=== PATIENT | male | born 1980 | race African-American/Black ===

== ENCOUNTER 2025-05-16 11:16 | Outpatient (REF) | payer MEDICARE, MEDICAID, SELFPAY ==
--- NOTE | ~2025-05-16 | XR_ITS ---
EXAMINATION: XR SACRUM COCCYX 2 OR MORE VIEWS HISTORY: back pain COMPARISON: There are no prior studies available for comparison. FINDINGS: Three views of the sacrum and coccyx are submitted. Osseous mineralization is normal. No fracture or lytic lesion is identified. XR/XR sacrum coccyx min 2V IMPRESSION: Unremarkable examination of the sacrum and coccyx. Electronically signed by: Aayush Monae MD 05/16/2025 11:54 AM EDT
--- NOTE | ~2025-05-16 | XR_ITS ---
EXAMINATION: XR LUMBAR SPINE 2-3 VIEWS HISTORY: back pain COMPARISON: There are no prior studies for comparison. FINDINGS: AP, lateral, and coned down views of the lumbar spine are submitted. Osseous mineralization is normal. Five nonrib-bearing lumbar vertebral bodies are identified, maintaining normal height and alignment without evidence of fracture or spondylolisthesis. There is minimal anterior spurring involving the superior endplate of L4. The intervertebral disc spaces are preserved. The posterior elements are intact. The visualized paraspinal soft tissues are unremarkable. XR/XR lumbar spine 2-3V IMPRESSION: Minimal degenerative changes. Electronically signed by: Aayush Monae MD 05/16/2025 11:53 AM EDT
== END 2025-05-16 11:17 | disposition home or self-care (01) ==
LOC: HO.XRAY 11:16
PROVIDERS: PCP Internal Medicine Medical Oncology; Visit Provider Internal Medicine Medical Oncology
DX: M54.50 Low back pain, unspecified (principal)
CPT/HCPCS: 72100; 72220

== ENCOUNTER → 2025-05-16 11:41 | Outpatient (BNV) | payer MEDICARE, MEDICAID, SELFPAY | PROVIDERS: PCP Internal Medicine Medical Oncology; Visit Provider Radiology Diagnostic Radiology | DX: M54.50 Low back pain, unspecified (principal); M53.3 Sacrococcygeal disorders, not elsewhere classified | CPT/HCPCS: 72100; 72220 ==

== ENCOUNTER 2025-06-06 09:53 | Outpatient (REF) | payer MEDICARE, MEDICAID, SELFPAY ==
--- OUTSIDE RECORDS SUMMARY | 2025-04-09 06:45 | XMS_ITS ---
Author Organization Aayush Rice III, MD Address [address] [place] [address] Care Team Providers Care Underground Miner Name Role Phone Dr. Aayush Rice III Primary Care Provider [phone] Allergies Allergen (clinical drug ingredient) Drug/Non Drug Allergy documented on EMR Reaction Allergy Type Onset Date Status No Known Drug Allergy Unknown Drug Allergy Active No Known Food Allergy Unknown Drug Allergy Active Reason For Referral Reason Consult and Treat Screen for colon cancer Diagnosis 1 Screen for colon can cer (Z12.11) Referral Organization Aayush Rice III, MD Referring Provider First Name Aayush Referring Provider Last Name Dwayne Referring Provider Speciality Internal M edicine Referred Provider Aayush Zapien Referred Provider Specialty Gastroentero logy Referral Priority Routine REASON FOR VISIT Annual Exam Medications Medication SIG (Take, Route, Frequency, Duration) Notes Start Date End Date Status Entresto 49-51 MG 1 tablet Orally Twic e a day Active traMADol HCl 50 MG 1 tablet as needed Orally Once a day Active Albuterol Sulfate HFA 108 (90 Base) MCG/ACT 2 puffs as needed Inhalation four times a day 12/10/2013 Active traZODone HCl 100 MG 1 tablet at bedtime Orally Once a day Active Clotrimazole-Betamethasone 1-0.05 % 1 application Externally Twice a day for 30 days 04/09/2025 08/06/2025 Active Spironolactone 50 MG 1 tablet Orally Onc e a day Active Atorvastatin Calcium 80 MG 1 tablet Oral ly Once a day Active Social History Tobacco Use: Social History Observation Description Date Details (start date - stop date) Former Smoker NA - NA Sex Assigned At : Social History Observation Description Sex Assigned At Male Tobacco Control (Standard) Question Answer Notes Tobacco use: Former smoker How long has it been since you last smoked? 5-10 years Additional Findings: Tobacco non-user Ex-cigaret te smoker AUDIT-C (Standard) Question Answer Notes Did you have a drink contain ing alcohol in the past year? Yes How often did you have six o r more drinks on one occasion in the past year? 4 or more times a week (4 points) How many drinks did you have on a typical day when you were drinking in the past year? 1 or 2 drinks (0 point) How often did you have a dri nk containing alcohol in the past year? Never (0 point) Points 4 Interpretation Positive Vital Signs Temperature 98.0 degrees Fahrenheit 04/09/20 25 Blood pressure systolic 138 mm Hg 04/09/20 25 Blood pressure diastolic 82 mm Hg 025 Heart Rate 91 /min 04/09/2025 Height 71 in 04/09/2025 Weight 329 lbs 04/09/2025 BMI 45.88 kg/m2 04/09/2025 Encounters Encounter Location Date Provider Diagnosis Aayush Rice III, MD [address] [place] [address] [place] [id number] 04/09/2025 Aayush Rice Type 2 diabetes ninfa itus with hyperglycemia E11.65 ; ED (erectile dysfunction) N52.9 ; Essential hypertension I10 ; Mixed hyperlipidemia E78.2 ; Obstructive sleep apnea G47.33 and Former smoker Z87.891 Assessments Encounter Date Diagnosis (ICD Code) Assessment Notes Treat ment Notes Treatment Clinical Notes 04/09/2025 Type 2 diabetes mellitus with hyperglycemia (ICD-10 - E11.65) He will stay on his current regimen of medications for diabetes and try to lose weight at a rate of 1/2 pound per week. Comprehensive blood work will be ordered. His medication will be adjusted was not is available. 04/09/2025 ED (erectile dysfunction) (ICD-10 - N52.9) If necessary, he will be given medication for this. 04/09/2025 Essential hypertension (ICD-10 - I10) His blood pressure is currently stable. We made a plan to lose weight at a rate of 1 pound per week and 2 pursue aggressive sodium restriction. 04/09/2025 Mixed hyperlipidemia (ICD-10 - E78.2) Comprehensive blood work includding a fasting lipid profile has been ordered. He was counseled about aggressive weight loss. We discussed diet and nutrition. 04/09/2025 Obstructive sleep apnea (ICD-10 - G47.33) I discussed with him the wisdom and importance of using his CPAP machine. He seems unlikely to use it every night as he does not perceive a benefit in how he feels. I have referred him back to the pulmonary doctor who prescribed it to see if it needs adjustment. 04/09/2025 Former smoker (ICD-1 0 - Z87.891) He is motivated not to smoke. He has a plan to prevent relapse in times of stress. Plan Of Treatment Medication Medication Name Sig Start Date Stop Date Notes Entresto 49-51 MG 1 tablet Orally Twice a day traMADol HCl 50 MG 1 tablet as needed O rally Once a day Albuterol Sulfate HFA 108 (9 0 Base) MCG/ACT 2 puffs as needed Inhalation four times a day 12/10/2013 traZODone HCl 100 MG 1 tablet at bedtime Orally Once a day Clotrimazole-Betamethasone 1-0.05 % 1 application Externally Twice a day for 30 days 04/09/2025 08/06/2025 Spironolactone 50 MG 1 tablet Orally Once a day Atorvastatin Calcium 80 MG 1 tablet Orally Once a day Pending Test Test Name Order Date PROFILE, FASTING (COMPREHENSIVE METABOLI C) 04/09/2025 PSA, TOTAL 04/09/2025 CBC w DIFF 04/09/2025 Lipid Panel 04/09/2025 Microalbumin, Random 04/09/2025 Hemoglobin A1c 04/09/2025 Referrals Referral Date Details 04/09/2025 04/09/2025, Consult and Treat Screen for colon cancer, Aayush Zapien Next Appt Details Follow Up: 6 Weeks, Reason: OV Provider Name:Aayush Garyne , 07/18/2025 09:45:00 AM, [address] [place] [address] [address], [place], [address], Provider Name:Aayush Rhodes Rice , 04/10/2026 10:00:00 AM, [address] [place] [address] [address], [place], [phone], Progress Notes * Jose BORREGO DDOB:[birth year] (45 yo M)Acc No.[id number]:04/09/2025 Progress Notes Patient: Tami Jose WALDRON Provider: Tani Rice MD :1980 A ge:45 Y S ex:Male Date:04/09/2025 Address:[address] [place], [place] [id number] Subjective: * Chief Complaints: * A nnual Exam * HPI: D epression Screening: He has been living in [place] until 4 months ago when he returns to [place]. He is with 3 children. He says his diabetes has been well-controlled. He is still for a diabetic ophthalmology examination. This has been arranged with a referral. Jonn has never had a colonoscopy and was referred for 1. Comprehensive blood work was ordered. His examination today was remarkable only for diabetes. He says he has a CPAP machine which he is using. He denies any recent asthma attacks. Hiis back pain is present but mild. Since his last visit he has had no surgery or hospitalizations. PHQ-9 L ittle interest or pleasure in doing things?More than half the days F eeling down, depressed, or hopeless M ore than half the days T rouble falling or staying asleep, or sleeping too much M ore than half the days F eeling tired or having little energy M ore than half the days P oor appetite or overeating N ot at all F eeling bad about yourself or that you are a failure, or have let yourself or your family down S everal days T rouble concentrating on things, such as reading the newspaper or watching television N ot at all M oving or speaking so slowly that other people could have noticed; or the opposite, being so fidgety or restless that you have been moving around a lot more than usual N ot at all T houghts that you would be better off or of hurting yourself in some way N ot at all T otal Score 9 I nterpretation M ild Depression C OVID-19 Screening: Questions H ave you had any new onset fever, chills, cough, congestion, sore throat, shortness of breath, muscle aches? N o S CHRISTIANO Questions: SDOH Questions I n the past year have you been worried about losing your housing? N o I n the past year have you or any family members you live with been unable to get any of the following when it was really needed? Check all that apply: D ecline to answer * ROS: G eneral/Constitutional: pain o nly normal aches and pains. C hills d enies.?Fatigue a dmits. F ever d enies. E NT: Decreased hearing d enies. R espiratory: Cough d enies. C ardiovascular: Chest pain with exertion d enies. D yspnea on exertion?denies. S hortness of breath d enies. G astrointestinal: Constipation o ccasional. D ecreased appetite d enies. D iarrhea d enies. H eartburn o ccasional. N ausea d enies. R ectal bleeding d enies. V omiting d enies. H ematology: bruising d enies. p etechiae d enies. S wollen glands n one have been noted. G enitourinary: Frequent urination o nce a night. M usculoskeletal: Muscle aches d enies. P ainful joints d enies. S ciatica d enies. W eakness d enies. S kin: Itching d enies. R artem d enies. S kin lesion(s)?denies. N eurologic: Difficulty speaking d enies. D izziness d enies.?Headache d enies. L ow back pain d enies. P sychiatric: Depressed mood d enies. * Medical History: * Surgical History: L aparascopic sleeve gastrectomy, Upper endoscopy [id number] 07/2018cardiac catheterization, [facility], Dr. Atkins 10/16/2020 * Hospitalization/Major Diagno stic Procedure: D enies Past Hospitalization * Family History: M other: alive, overwieght with asthm;a. C hildren: one child has asthma. S iblings: a sister has asthma. F ather: diagnosed with HTN. 1 brother(s) , 2 sister(s) . 2 son(s) , 1 daughter(s) - healthy. . * Social History: T obacco Use: T obacco Control (Standard) T obacco use: F ormer smoker H ow long has it been since you last smoked??5-10 years A dditional Findings: Tobacco non-user E x-cigarette smoker D rugs/Alcohol: D rugs H ave you used drugs other than those for medical reasons in the past 12 months? [facility] es [facility] Y es D rug/Alcohol: A GERMAINE-C (Standard) D id you have a drink containing alcohol in the past year? Y es H ow often did you have six or more drinks on one occasion in the past year? 4 or more times a week (4 points) H ow many drinks did you have on a typical day when you were drinking in the past year? 1 or 2 drinks (0 point) H ow often did you have a drink containing alcohol in the past year? N ever (0 point) P oints 4 I nterpretation P ositive H celso is unemployed at present. He is single. His ex- is Molly. He has 3 children. He was born in [place], [place]. * Medications: T akingSpironolactone 50 MG Tablet 1 tablet Orally Once a day Atorvastatin Calcium 80 MG Tablet 1 tablet Orally Once a day Entresto 49-51 MG Tablet 1 tablet Orally Twice a day traMADol HCl 50 MG Tablet 1 tablet as needed Orally Once a day Albuterol Sulfate HFA 108 (90 Base) MCG/ACT Aerosol Solution 2 puffs as needed Inhalation four times a day traZODone HCl 100 MG Tablet 1 tablet at bedtime Orally Once a day Taking Spironolactone 50 MG Tablet 1 tablet Orally Once a day Taking Atorvastatin Calcium 80 MG Tablet 1 tablet Orally Once a day Taking Entresto 49-51 MG Tablet 1 tablet Orally Twice a day Taking traMADol HCl 50 MG Tablet 1 tablet as needed Orally Once a day Taking Albuterol Sulfate HFA 108 (90 Base) MCG/ACT Aerosol Solution 2 puffs as needed Inhalation four times a day Taking traZODone HCl 100 MG Tablet 1 tablet at bedtime Orally Once a day DiscontinuedProAir HFA 108 (90 Base) MCG/ACT Aerosol Solution 2 puff as needed Inhalation 4 times a day Lisinopril 20 MG Tablet TAKE 1 TABLET BY MOUTH TWICE DAILY Oral Simvastatin 40 MG Tablet TAKE 1 TABLET BY MOUTH EVERY NIGHT AT BEDTIME Oral Cyclobenzaprine HCl 10 MG Tablet TAKE 1 TABLET BY MOUTH THREE TIMES DAILY NEEDED AT BEDTIME FOR 10 DAYS Oral Loratadine 10 MG Tablet 1 tablet Oral Once a day Lotrisone 1-0.05 % Cream 1 application to affected area Externally Twice a day BD Insulin Syringe U-100 1 ML Miscellaneous as directed as directed 10 unit daily and as needed per sliding scale OneTouch Delica Lancets Fine 0 Miscellaneous TEST THREE TIMES DAILY as directed test blood sugars TID FreeStyle Lite Test - Strip as directed In Vitro 3 times a day NovoLOG 100 UNIT/ML Solution as directed Subcutaneous 10 units under skin prior to each meal Alcohol Pads 70 % Pad as directed use to test 3 times a day daily Lantus 100 UNIT/ML Solution as directed Subcutaneous 10 unit daily Ketoconazole 2 % Cream 1 application Externally Twice a day Furosemide 40 MG Tablet 1 tablet Orally Once a day Carvedilol 12.5 MG Tablet 1 tablet with food Orally Twice a day predniSONE 20 MG Tablet 1 tablet with food or milk Orally Once a day Medication List reviewed and reconciled with the patientDiscontinued ProAir HFA 108 (90 Base) MCG/ACT Aerosol Solution 2 puff as needed Inhalation 4 times a day Discontinued Lisinopril 20 MG Tablet TAKE 1 TABLET BY MOUTH TWICE DAILY Oral Discontinued Simvastatin 40 MG Tablet TAKE 1 TABLET BY MOUTH EVERY NIGHT AT BEDTIME Oral Discontinued Cyclobenzaprine HCl 10 MG Tablet TAKE 1 TABLET BY MOUTH THREE TIMES DAILY NEEDED AT BEDTIME FOR 10 DAYS Oral Discontinued Loratadine 10 MG Tablet 1 tablet Oral Once a day Discontinued Lotrisone 1-0.05 % Cream 1 application to affected area Externally Twice a day Discontinued BD Insulin Syringe U-100 1 ML Miscellaneous as directed as directed 10 unit daily and as needed per sliding scale Discontinued OneTouch Delica Lancets Fine 0 Miscellaneous TEST THREE TIMES DAILY as directed test blood sugars TID Discontinued FreeStyle Lite Test - Strip as directed In Vitro 3 times a day Discontinued NovoLOG 100 UNIT/ML Solution as directed Subcutaneous 10 units under skin prior to each meal Discontinued Alcohol Pads 70 % Pad as directed use to test 3 times a day daily Discontinued Lantus 100 UNIT/ML Solution as directed Subcutaneous 10 unit daily Discontinued Ketoconazole 2 % Cream 1 application Externally Twice a day Discontinued Furosemide 40 MG Tablet 1 tablet Orally Once a day Discontinued Carvedilol 12.5 MG Tablet 1 tablet with food Orally Twice a day Discontinued predniSONE 20 MG Tablet 1 tablet with food or milk Orally Once a day Medication List reviewed and reconciled with the patient * Allergies: N o Known Drug AllergyNo Known Food Allergyno[Allergies Verified] Objective: * Vitals: H t: 71, Wt: 329, BMI:45.88, BP: 138/82, HR: 91, Temp: 98.0, Wt-k.23. * Examination: G eneral Examination: GENERAL APPEARANCE: p leasant, well nourished, well developed, in no acute distress, calm and relaxed: morbidly obese: man. HEAD: a traumatic, normocephalic. EYES: e hossein, perrla, anicteric, conjugate. EARS: n ormal. NOSE: s eptum intact. ORAL CAVITY: n ormal, unremarkable. NECK/THYROID: n o jugular venous distention, no carotid bruit, thyroid normal. LYMPH NODES: n o enlarged lymph nodes,spleen normal. SKIN: n o suspicious lesions, anicteric. HEART: n o clicks, gallops, murmurs, or rubs, regular rhythm, S1, S2 normal, no s3, or vascular bruits. LUNGS: c lear to auscultation . BREASTS: no masses palpable bilaterally. ABDOMEN: b owel sounds normal, no ascites, no organomegaly, no mass: morbid obesity. RECTAL EXAM: n ot examined. MUSCULOSKELETAL: e xtremities unremarkable, no clubbing, cyanosis or edema. PERIPHERAL PULSES: n ormal. NEUROLOGIC: a lert and oriented, cranial nerves 2-12 grossly intact, deep tendon reflexes 2+ symmetrical, motor strength normal upper and lower extremities, sensory exam intact. PSYCH: a lert, oriented. Assessment: * Assessment: 1. T ype 2 diabetes mellitus with hyperglycemia - E11.65 (Primary) N otes :He will stay on his current regimen of medications for diabetes and try to lose weight at a rate of 1/2 pound per week. Comprehensive blood work will be ordered. His medication will be adjusted was not is available. 2 . E D (erectile dysfunction) - N52.9 N otes :If necessary, he will be given medication for this. 3 . E ssential hypertension - I10 N otes :His blood pressure is currently stable. We made a plan to lose weight at a rate of 1 pound per week and 2 pursue aggressive sodium restriction. 4 . M ixed hyperlipidemia - E78.2 N otes :Comprehensive blood work includding a fasting lipid profile has been ordered. He was counseled about aggressive weight loss. We discussed diet and nutrition. 5 . O bstructive sleep apnea - G47.33 N otes :I discussed with him the wisdom and importance of using his CPAP machine. He seems unlikely to use it every night as he does not perceive a benefit in how he feels. I have referred him back to the pulmonary doctor who prescribed it to see if it needs adjustment. 6 . F ormer smoker - Z87.891 N otes :He is motivated not to smoke. He has a plan to prevent relapse in times of stress. Plan: * Treatment: 2. E D (erectile dysfunction) L AB: PROFILE, FASTING (COMPREHENSIVE METABOLIC) L AB: PSA, TOTAL L AB: CBC w DIFF L AB: Lipid Panel L AB: Microalbumin, Random L AB: Hemoglobin A1c 3. E ssential hypertension L AB: PROFILE, FASTING (COMPREHENSIVE METABOLIC) L AB: PSA, TOTAL L AB: CBC w DIFF L AB: Lipid Panel L AB: Microalbumin, Random L AB: Hemoglobin A1c 4. M ixed hyperlipidemia L AB: PROFILE, FASTING (COMPREHENSIVE METABOLIC) L AB: PSA, TOTAL L AB: CBC w DIFF L AB: Lipid Panel L AB: Microalbumin, Random L AB: Hemoglobin A1c 5. O thers Referral To:Aayush Zapien Gastroenterology Reason:Consult and Treat Screen for colon cancer * Procedure Codes: * Preventive Medicine: Counseling: C are goal follow-up plan: Counseling for abnormal BMI given Y es Above Normal BMI Follow-up D ietary management education, guidance, and counseling, Dietary needs education, Exercise promotion: strength training, Exercise promotion: stretching, Feeding regime, Giving encouragement to exercise, Lifestyle education regarding diet, Nutrition / feeding management, Nutrition therapy, Prescribed activity/exercise education, Prescribed diet education, Prescribed dietary intake, Special diet education, Weight monitoring , Intervention, Order not done: Medical or Other reason not done S moking/Tobacco Use Patient counseled on the dangers of tobacco use and urged to quit. 0 04/09/2025 DM Care Plan: P atient Lifestyle Goals P atient wants to be able to manage diabetes without too much effort. T reatment Goals H bA1C < 7.0, Blood Sugars less than < 115. B arriers n o barriers. S elf-Managment Goals W ork on weight loss, with a goal of losing 1 lb per week. * Follow Up: 6 Weeks (Reason: OV) * Images: * Sign off status: Completed true * Provider: Tani Rice MD Date: 0 04/09/2025 Generated for Janis hood/Lindy/Rgahuitting on: 11:42 AM EDT History and Physical Notes * HPI (History of Present Illness) Category Sub-Category Detail Notes Depression Screening PHQ-9 Little inte rest or pleasure in doing things: More than half the days Feeling down, depressed, or hopeless: Mo re than half the days Trouble falling or staying a sleep, or sleeping too much: More than half the days Feeling tired or having little energy: M ore than half the days Poor appetite or overeating: Not at all Feeling bad about yourself o r that you are a failure, or have let yourself or your family down: Several days Trouble concentrating on thi ngs, such as reading the newspaper or watching television: Not at all Moving or speaking so slowly that other people could have noticed; or the opposite, being so fidgety or restless that you have been moving around a lot more than usual: Not at all Thoughts that you would be b cat off or of hurting yourself in some way: Not at all Total Score: 9 Interpretation: Mild Depression COVID-19 Screening Questions Have you had any new onset fever, chills, cough, congestion, sore throat, shortness of breath, muscle aches?: No SDOH Questions SDOH Questions In the past year have you been worried about losing your housing?: No In the past year have you or any family members you live with been unable to get any of the following when it was really needed? Check all that apply:: Decline to answer Examination Category Sub-Category Detail Notes General Examination GENERAL APPEARANCE: pleasant , well nourished, well developed, in no acute distress, calm and relaxed: morbidly obese: man HEAD: atraumatic, normocep halic EYES: eomi, perrla, anicte daniela, conjugate EARS: normal NOSE: septum intact NECK/THYROID: no jugular venous di stention, no carotid bruit, thyroid normal HEART: no clicks, gallops, murmurs, or rubs, regular rhythm, S1, S2 normal, no s3, or vascular bruits LUNGS: clear to auscultatio n ABDOMEN: bowel sounds normal, no ascites, no organomegaly, no mass: morbid obesity NEUROLOGIC: alert and oriented, cranial nerves 2-12 grossly intact, deep tendon reflexes 2+ symmetrical, motor strength normal upper and lower extremities, sensory exam intact SKIN: no suspicious lesion s, anicteric PERIPHERAL PULSES: normal BREASTS: no masses palpable b ilaterally MUSCULOSKELETAL: extremities unremark able, no clubbing, cyanosis or edema LYMPH NODES: no enlarged lymph no corina,spleen normal RECTAL EXAM: not examined PSYCH: alert, oriented ORAL CAVITY: normal, unremarkable Consultation Request Notes Referral Date Referring Provider Referred Provider Not se 04/09/2025 Aayush Rice, Aayush Deleon and Kasey benavidez Screen for colon cancer
--- OUTSIDE RECORDS SUMMARY | 2025-04-10 05:07 | XMS_ITS ---
Author Organization Aayush Rice III, MD Address [address] [place] [address] Care Team Providers Care Shearing Shed Hand Name Role Phone Dr. Aayush Rice III Primary Care Provider REASON FOR VISIT Rx Medications Medication SIG (Take, Route, Frequency, Duration) Notes Start Date End Date Status Clotrimazole-Betamethason e 1-0.05 % 1 application Externally Twice a day for 30 days 04/09/2025 08/08/2025 Active Social History Sex Assigned At : Social History Observation Description Sex Assigned At Male Encounters Encounter Location Date Provider Diagnosis Aayush Rice III, MD [address] [place] [address] [place] [phone] 04/10/2025 Aayush Rice Type 2 diabetes mellitus with hyperglycemia E11.65 Assessments Encounter Date Diagnosis (ICD Code) Assessment Notes Treat ment Notes Treatment Clinical Notes 04/10/2025 Type 2 diabetes mellitus with hyperglycemia (ICD-10 - E11.65) He will stay on his current regimen of medications for diabetes and try to lose weight at a rate of 1/2 pound per week. Periodic blood work will be done. Plan Of Treatment Medication Medication Name Sig Start Date Stop Date Notes Clotrimazole-Betamethasone 1-0.05 % 1 application Externally Twice a day for 30 days 04/09/2025 08/08/2025 Next Appt Details Provider Name:Aayush Meagan Dwayne , 07/18/2025 09:45:00 AM, [address] [place] [address] [address], [place], [phone], Provider Name:Aayush Rhodes Dwayne , 04/10/2026 10:00:00 AM, [address] [place] [address] [address], [place], [phone], Progress Notes * Jose ALVAREZ DDOB:[birth year] (45 yo M)Acc No.[id number]:04/10/2025 Patient: Tami Jose WALDRON :1980 A ge:45 Y S ex:Male Address:[address] [place] [id number] * Refills Refill Clotrimazole-Betamethasone Cream, 1-0.05 %, Externally, 60 Gram, 1 application, Twice a day, 30 days, Refills=3 * true * Date: Generated for Janis hood/Lindy/Raghuitting on: 11:41 AM EDT
--- OUTSIDE RECORDS SUMMARY | 2025-04-22 05:45 | XMS_ITS ---
Author Organization Aayush Rice III, MD Address [address] [place] [address] Care Team Providers Care Booster Station Operator Name Role Phone Dr. Aayush Rice III Primary Care Provider Allergies Allergen (clinical drug ingredient) Drug/Non Drug Allergy documented on EMR Reaction Allergy Type Onset Date Status No Known Drug Allergy Unknown Drug Allergy Active No Known Food Allergy Unknown Drug Allergy Active REASON FOR VISIT Acute right knee pain, Right knee effusion, History of gout, Sleep apnea, Diabetes, Asthma, Lumbar radiculopathy, Morbid obesity Medications Medication SIG (Take, Route, Frequency, Duration) Notes Start Date End Date Status Atorvastatin Calcium 80 MG 1 tablet Oral ly Once a day Active traZODone HCl 100 MG 1 tablet at bedtime Orally Once a day Active Albuterol Sulfate HFA 108 (90 Base) MCG/ACT 2 puffs as needed Inhalation four times a day 12/10/2013 Active traMADol HCl 50 MG 1 tablet as needed Orally Once a day Active Entresto 49-51 MG 1 tablet Orally Twic e a day Active Spironolactone 50 MG 1 tablet Orally Onc e a day Active Clotrimazole-Betamethasone 1-0.05 % 1 application Externally Twice a day 04/09/2025 Active predniSONE 20 MG 2 tablets with food or milk Orally Once a day for 3 days 04/22/2025 04/28/2025 Active Social History Tobacco Use: Social History Observation Description Date Details (start date - stop date) Former Smoker NA - NA Sex Assigned At : Social History Observation Description Sex Assigned At Male Tobacco Control (Standard) Question Answer Notes Tobacco use: Former smoker How long has it been since you last smoked? 5-10 years Additional Findings: Tobacco non-user Ex-cigaret te smoker Problems Problem Type SNOMED Code ICD Code Onset Dates Problem Status W/U Status Risk Notes Problem Obesity (464554955) Obesity (278.00) Active confirmed He has gained 2 pounds since his last visit which is likely fluid. I strongly encouraged him to continue with weight loss program. 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 Periodic blood work will be done. 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 It was treated with prednisone. 04/22/2025 Former smoker (ICD-10 - Z87.891) He is motivated not to smoke. He has a plan to prevent relapse in times of stress. 04/22/2025 Obstructive sleep apnea (ICD-10 - G47.33) I discussed with him the wisdom and importance of using his CPAP machine. He seems unlikely to use it every night as he does not perceive a benefit in how he feels. I have referred him back to the pulmonary doctor who prescribed it to see if it needs adjustment. 04/22/2025 Essential hypertension (ICD-10 - I10) His blood pressure is currently stable. We made a plan to lose weight at a rate of 1 pound per week and to pursue aggressive sodium restriction. 04/22/2025 GERD (gastroesophageal reflux disease) (ICD-10 - K21.9) His reflux has been well controlled with [id number]-bljkmvu medications. No change in his regimen was needed today. I recommended weight reduction. 04/22/2025 Other congestive heart failure (ICD-10 - I50.9) CHF is well compensated at this time and he is not symptomatic with most of activities of daily life. 04/22/2025 Hypothyroidism, unspecified type (ICD-10 - E03.9) His total T4 was 3.7 with a TSH of 2.55. No change in his regimen was needed. Plan Of Treatment Medication Medication Name Sig Start Date Stop Date Notes Atorvastatin Calcium 80 MG 1 tablet Orally Once a day traZODone HCl 100 MG 1 tablet at bedtime Orally Once a day Albuterol Sulfate HFA 108 (9 0 Base) MCG/ACT 2 puffs as needed Inhalation four times a day 12/10/2013 traMADol HCl 50 MG 1 tablet as needed O rally Once a day Entresto 49-51 MG 1 tablet Orally Twice a day Spironolactone 50 MG 1 tablet Orally Once a day Clotrimazole-Betamethasone 1-0.05 % 1 application Externally Twice a day 04/09/2025 predniSONE 20 MG 2 tablets with food or milk Orally Once a day for 3 days 04/22/2025 04/28/2025 Next Appt Details Follow Up: 2 - 3 Days, Reaso n: Telehealth Provider Name:Aayush Houston Dwayne , 07/18/2025 09:45:00 AM, [address] [place] [address] [address], [place], [address], Provider Name:Aayush Meagan Dwayne , 04/10/2026 10:00:00 AM, [address] [place] [address] [address], [place], [address], Progress Notes * Jose BORREGO DDOB:[birth year] (45 yo M)Acc No.[id number]:04/22/2025 Progress Notes Patient: Tami JOYAMARITA Jose Benavides Provider: Tani Rice MD :1980 A ge:45 Y S ex:Male Date:04/22/2025 Address:[address] [place], [place] [id number] Subjective: * Chief Complaints: * A cute right knee painRight knee effusionHistory of goutSleep apneaDiabetesAsthmaLumbar radiculopathyMorbid obesity * HPI: C OVID-19 Screening: He comes to the office because of a three-day history of acute right knee pain. He may have twisted it but he is not sure. It has become moderately painful with weightbearing. He has taken no medication. On examination there was a small joint effusion and limitation of range of motion. It is likely this represents gout. He was given prednisone for 3 days in a follow-up visit. Questions H ave you had any new onset fever, chills, cough, congestion, sore throat, shortness of breath, muscle aches? N o * ROS: G eneral/Constitutional: pain R ight knee for 3 days. C hills d enies. F atigue a dmits. F ever d enies. E NT: Decreased hearing d enies. R espiratory: Cough d enies. C ardiovascular: Chest pain with exertion d enies. D yspnea on exertion?denies. S hortness of breath d enies. G astrointestinal: Constipation o ccasional. D ecreased appetite d enies. D iarrhea d enies. H eartburn d enies. N ausea d enies. R ectal bleeding [...] History: L aparascopic sleeve gastrectomy, Upper endoscopy [id number] 07/2018cardiac catheterization, [facility], Dr. Atkins 10/16/2020 * Hospitalization/Major Diagno stic [...] dditional Findings: Tobacco non-user E x-cigarette smoker Karol houston is unemployed at present. He is single. His ex- is Molly. He has 3 children. He was born in [place], [place]. * Medications: T akingSpironolactone 50 MG [...] Orally Once a day Clotrimazole-Betamethasone 1-0.05 % Cream 1 application Externally Twice a day , stop date 08/08/2025Medication List reviewed and reconciled with the patientTaking Spironolactone 50 MG Tablet 1 tablet Orally [...] at bedtime Orally Once a day Taking Clotrimazole-Betamethasone 1-0.05 % Cream 1 application Externally Twice a day , stop date 08/08/2025Medication List reviewed and reconciled with the patient * Allergies: N o Known Drug AllergyNo Known Food Allergyno[Allergies Verified] Objective: * Vitals: H t: 71, Wt: 330, BMI:46.02, BP: 130/79, HR: 80, Temp: 98.1, Wt-k.69. * Examination: G eneral Examination: GENERAL APPEARANCE: [...] or vascular bruits. LUNGS: c lear to auscultation: no wheezes, rales, rhonchi: good air movement. BREASTS: no masses palpable bilaterally. ABDOMEN: b owel sounds normal, no ascites, no organomegaly, no mass: morbid obesity. RECTAL EXAM: n ot examined. MUSCULOSKELETAL: M oderate right knee effusion with decreased range of motion and pain. PERIPHERAL PULSES: n ormal. NEUROLOGIC: a lert and oriented, cranial nerves 2-12 grossly intact, deep tendon reflexes 2+ symmetrical, motor strength normal upper and lower extremities, sensory exam intact. PSYCH: a lert, oriented. Assessment: * Assessment: 1. O ther secondary chronic gout without tophus, unspecified site - M1A.40X0 (Primary) ? N otes :This is likely gout in the right knee. It was treated with prednisone. 2 . T ype 2 diabetes mellitus with hyperglycemia - E11.65 N otes :He will stay on his current regimen of medications for diabetes and try to lose weight at a rate of 1/2 pound per week. Periodic blood work will be done. 3 . F ormer smoker - Z87.891 N otes :He is motivated not to smoke. He has a plan to prevent relapse in times of stress. 4 . O bstructive sleep apnea - G47.33 N otes :I discussed with him the wisdom and importance of using his CPAP machine. He seems unlikely to use it every night as he does not perceive a benefit in how he feels. I have referred him back to the pulmonary doctor who prescribed it to see if it needs adjustment. 5 . E ssential hypertension - I10 N otes :His blood pressure is currently stable. We made a plan to lose weight at a rate of 1 pound per week and to pursue aggressive sodium restriction. 6 . G ERD (gastroesophageal reflux disease) - K21.9 N otes :His reflux has been well controlled with xusq-lzd-eodomtc medications. No change in his regimen was needed today. I recommended weight reduction. 7 . O ther congestive heart failure - I50.9 N otes :CHF is well compensated at this time and he is not symptomatic with most of activities of daily life. 8 . H ypothyroidism, unspecified type - E03.9 N otes :His total T4 was 3.7 with a TSH of 2.55. No change in his regimen was needed. Plan: * Treatment: * Procedure Codes: * Preventive Medicine: Counseling: [...] tobacco use and urged to quit. 0 04/22/2025 DM Care Plan: P atient Lifestyle Goals P atient wants to be able to manage diabetes without too much effort. T reatment Goals H bA1C < 7.0, Blood Sugars less than < 115. B arriers n o barriers. S elf-Managment Goals W ork on weight loss, with a goal of losing 1 lb per week. * Follow Up: 2 - 3 Days (Reason: Telehealth) * Images: * Sign off status: Completed true * Provider: Tani Rice MD Date: 0 04/22/2025 Generated for Janis hood/Lindy/eTnavitting on: 1 11:41 AM EDT History and Physical Notes * HPI (History of Present Illness) Category Sub-Category Detail Notes COVID-19 Screening Questions Have you had any new onset fever, chills, cough, congestion, sore throat, shortness of breath, muscle aches?: No Examination Category Sub-Category Detail Notes General Examination [...] or vascular bruits LUNGS: clear to auscultatio n: no wheezes, rales, rhonchi: good air movement ABDOMEN: bowel sounds normal, no ascites, no organomegaly, no mass: morbid obesity NEUROLOGIC: alert and oriented, cranial nerves 2-12 grossly intact, deep tendon reflexes 2+ symmetrical, motor strength normal upper and lower extremities, sensory exam intact SKIN: no suspicious lesion s, anicteric PERIPHERAL PULSES: normal BREASTS: no masses palpable b ilaterally MUSCULOSKELETAL: Moderate right knee effusion with decreased range of motion and pain LYMPH NODES: no enlarged lymph no corina,spleen normal RECTAL EXAM: not examined PSYCH: alert, oriented ORAL CAVITY: normal, unremarkable
--- OUTSIDE RECORDS SUMMARY | 2025-04-26 10:30 | XMS_ITS ---
Author Organization Aayush Rice III, MD Address [address] [place] [address] Care Team Providers Care Skiff Operator Name Role Phone Dr. Aayush Rice III Primary Care Provider [phone] Allergies Allergen (clinical drug ingredient) Drug/Non Drug Allergy documented on EMR Reaction Allergy Type Onset Date Status No Known Drug Allergy Unknown Drug Allergy Active No Known Food Allergy Unknown Drug Allergy Active REASON FOR VISIT Acute right knee pain, History of gout Medications Medication SIG (Take, Route, Frequency, Duration) Notes Start Date End Date Status predniSONE 20 MG 2 tablets with food or milk Orally Once a day 04/22/2025 Active Entresto 49-51 MG 1 tablet Orally Twic e a day Active Atorvastatin Calcium 80 MG 1 tablet Oral ly Once a day Active Spironolactone 50 MG 1 tablet Orally Onc e a day Active Clotrimazole-Betamethasone 1-0.05 % 1 application Externally Twice a day 04/09/2025 Active traZODone HCl 100 MG 1 tablet at bedtime Orally Once a day Active Albuterol Sulfate HFA 108 (90 Base) MCG/ACT 2 puffs as needed Inhalation four times a day 12/10/2013 Active traMADol HCl 50 MG 1 tablet as needed Orally Once a day Active Social History Tobacco [...] Problem Status W/U Status Risk Notes Problem [id number] Right anterior knee pain (M25.561) Active confirmed He has an appointment arranged with orthopedic surgery. He was continued on current therapy. He was advised to use a heating pad on his knee and to rest it as much as possible. 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 He will continue with heat and rest and acetaminophen. 04/26/2025 Type 2 diabetes mellitus with hyperglycemia (ICD-10 - E11.65) He will stay on his current regimen of medications for diabetes and try to lose weight at a rate of 1/2 pound per week. Periodic blood work will be done. 04/26/2025 Former smoker (ICD-1 0 - Z87.891) He is motivated not to smoke. He has a plan to prevent relapse in times of stress. 04/26/2025 Other congestive heart failure (ICD-10 - I50.9) CHF is well compensated at this time and he is not symptomatic with most of activities of daily life. 04/26/2025 Hypothyroidism, unspecified type (ICD-10 - E03.9) His total T4 was 3.7 with a TSH of 2.55. No change in his regimen was needed. 04/26/2025 Mixed hyperlipidemia (ICD-10 - E78.2) Comprehensive blood work includding a fasting lipid profile has been ordered. He was counseled about aggressive weight loss. We discussed diet and nutrition. 04/26/2025 Morbid obesity (ICD-10 - E66.01) We reviewed his diet and his nutrition and his weight and his body mass index. I reviewed his weight loss strategy. I recommended weight loss at a rate of 1/2 pound per week through a diet restricted in concentrated sweets calories and animal fat and sodium. 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 It was treated with prednisone. 04/26/2025 Lumbar radiculopathy (ICD-10 - M54.16) His wheezing today is absent and his asthma recently has been mild. He is much less short of breath and when he went to the [facility] on October 13. 04/26/2025 Mild asthma without complication, unspecified whether persistent (ICD-10 - J45.909) There was no wheezing noted today and he was breathing comfortably. He reports he has not recently had any asthma. Plan Of Treatment Medication Medication Name Sig Start Date Stop Date Notes predniSONE 20 MG 2 tablets with food or milk Orally Once a day 04/22/2025 Entresto 49-51 MG 1 tablet Orally Twice a day Atorvastatin Calcium 80 MG 1 tablet Orally Once a day Spironolactone 50 MG 1 tablet Orally Once a day Clotrimazole-Betamethasone 1-0.05 % 1 application Externally Twice a day 04/09/2025 traZODone HCl 100 MG 1 tablet at bedtime Orally Once a day Albuterol Sulfate HFA 108 (9 0 Base) MCG/ACT 2 puffs as needed Inhalation four times a day 12/10/2013 traMADol HCl 50 MG 1 tablet as needed O rally Once a day Next Appt Details Follow Up: As Scheduled, Dinorah son: OV Provider Name:Aayush Meagan Dwayne , 07/18/2025 09:45:00 AM, [address] [place] [address] [address], [place], [address], Provider Name:Aayush Meagan wDayne , 04/10/2026 10:00:00 AM, [address] [place] [address] [address], [place], [address], Progress Notes * Jose ALVAREZ DDOB:[birth year] (45 yo M)Acc No.[id number]:04/26/2025 Patient: Jose WHALEN Provider: Tani Rice MD :1980 A ge:45 Y S ex:Male Date:04/26/2025 Address:[address] [place], [place] [id number] Subjective: * Chief Complaints: * A cute right knee painHistory of gout * HPI: * : This telehealth visit took place over 15 minutes with the patient at home and me in my office. He gave consent for billing. This is a follow-up on the acute knee pain. It has continued to be painful and is somewhat better. This makes it unlikely to be gout. He was given an appointment to come in and follow-up. He will need to see orthopedics. Telehealth L ocation of provider rendering services: { ...} [address] [facility] [address] L ocation of patient: a ddress listed in demographics for today's visit P atient identification confirmed using: NISA Wayne ame T elehealth method: T elephone only. Patient not visible to care provider. C onsent: P atient verbally consented to treatment, Patient verbally consented to billing insurance company, Patient informed of any privacy concerns related to method of visit T otal time spent with patient (mins) 1 5 * ROS: G eneral/Constitutional: pain R ight knee with weightbearing. C hills d enies. F atigue a [...] Muscle aches d enies. P ainful joints R ight knee.?Sciatica d enies. W eakness d enies. S kin: Itching d enies. R artem d enies. S kin lesion(s)?denies. N eurologic: Difficulty speaking d enies. D izziness d enies.?Headache d enies. L ow back pain d enies. P sychiatric: Depressed mood d enies. * Medical History: * Surgical History: L aparascopic sleeve gastrectomy, Upper endoscopy [id number] 07/2018cardiac catheterization, [facility], Dr. Atkins 10/16/2020 * Hospitalization/Major Diagno stic Procedure: N o Hospitalization History. * Family History: M other: alive, overwieght [...] has 3 children. He was born in [place], [place]. * Medications: T akingClotrimazole-Betamethasone 1-0.05 % Cream 1 application Externally Twice a day Spironolactone 50 MG Tablet 1 tablet Orally [...] tablet at bedtime Orally Once a day predniSONE 20 MG Tablet 2 tablets with food or milk Orally Once a day , stop date 04/28/2025Medication List reviewed and reconciled with the patientTaking Clotrimazole-Betamethasone 1-0.05 % Cream 1 application Externally Twice a day Taking Spironolactone 50 MG Tablet [...] at bedtime Orally Once a day Taking predniSONE 20 MG Tablet 2 tablets with food or milk Orally Once a day , stop date 04/28/2025Medication List reviewed and reconciled with the patient * Allergies: N o Known Drug AllergyNo Known Food Allergyno[Allergies Verified] Objective: * Vitals: Assessment: * Assessment: 1. R ight anterior knee pain - M25.561 (Primary) N otes :Appointment with orthopedic surgery will be arranged. He will continue with heat and rest and acetaminophen. 2 . F ormer smoker - Z87.891 N otes :He is motivated not to smoke. He has a plan to prevent relapse in times of stress. 3 . T ype 2 diabetes mellitus with hyperglycemia - E11.65 N otes :He will stay on his current regimen of medications for diabetes and try to lose weight at a rate of 1/2 pound per week. Periodic blood work will be done. 4 . O ther congestive heart failure - I50.9 N otes :CHF is well compensated at this time and he is not symptomatic with most of activities of daily life. 5 . H ypothyroidism, unspecified type - E03.9 N otes :His total T4 was 3.7 with a TSH of 2.55. No change in his regimen was needed. 6 . M ixed hyperlipidemia - E78.2 N otes :Comprehensive blood work includding a fasting lipid profile has been ordered. He was counseled about aggressive weight loss. We discussed diet and nutrition. 7 . M orbid obesity - E66.01 N otes :We reviewed his diet and his nutrition and his weight and his body mass index. I reviewed his weight loss strategy. I recommended weight loss at a rate of 1/2 pound per week through a diet restricted in concentrated sweets calories and animal fat and sodium. 8 . 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 Notes :This is likely gout in the right knee. It was treated with prednisone. 9 . L umbar radiculopathy - M54.16 N otes :His wheezing today is absent and his asthma recently has been mild. He is much less short of breath and when he went to the [facility] on October 13. 1 0. M ild asthma without complication, unspecified whether persistent - J45.909 N otes :There was no wheezing noted today and he was breathing comfortably. He reports he has not recently had any asthma. Plan: * Treatment: * Procedure Codes: 9 8012 SYNCH AUDIO-ONLY EST SF 10 * Preventive Medicine: Counseling: C are goal [...] tobacco use and urged to quit. 0 04/26/2025 DM Care Plan: P atient Lifestyle Goals P atient wants to be able to manage diabetes without too much effort. T reatment Goals B lood Sugars less than < 115, HbA1C < 7.0. B arriers n o barriers. S elf-Managment Goals W ork on weight loss, with a goal of losing 1 lb per week. * Follow Up: A s Scheduled (Reason: OV) * Images: * Sign off status: Completed true * Provider: Tani Rice MD Date: 0 04/26/2025 Generated for Janis hood/Lindy/Raghuitting on: 1 11:42 AM EDT History and Physical Notes * HPI (History of Present Illness) Category Sub-Category Detail Notes Telehealth Location of [facility] rendering services:: {...} [address] [place] [id number] Location of patient:: address listed in demographics for today's visit Patient identification confirmed using:: Name, Telehealth method:: Telephone only. Charlee ent not visible to care provider. Consent:: Patient verbally c onsented to treatment, Patient verbally consented to billing insurance company, Patient informed of any privacy concerns related to method of visit Total time spent with patient (mins): 15
--- OUTSIDE RECORDS SUMMARY | 2025-05-16 06:45 | XMS_ITS ---
Author Organization Aayush Rice III, MD Address [address] [address] Care Team Providers Care Marketing Database Consultant Name Role Phone Dr. Aayush Rice III Primary Care Provider Allergies Allergen (clinical drug ingredient) Drug/Non Drug Allergy documented on EMR Reaction Allergy Type Onset Date Status No Known Drug Allergy Unknown Drug Allergy Active No Known Food Allergy Unknown Drug Allergy Active Results Component Value Reference Range Notes XR lumbar spine 2-3V Reviewed date:05/18/2025 04:31:23 PM Interpretation: Performing Lab: Notes/Report: [address] [address] XRay Report Signed Patient: Jose Borrego MR#: [id number] : 1980 Acct:[id number] Age/Sex: 45 / M ADM Date: 05/16/25 Loc: HO.XRAY Attending Dr: Aayush Rice MD Ordering Physician: Aayush Rice MD Date of Service: 05/16/25 Procedure(s): XR lumbar spine 2-3V Accession Number(s): [id number] cc: Aayush Rice MD Reason for Exam: back pain EXAMINATION: XR LUMBAR SPINE 2-3 VIEWS HISTORY: back pain COMPARISON: There are no prior studies for comparison. FINDINGS: AP, lateral, and coned down views of the lumbar spine are submitted. Osseous mineralization is normal. Five nonrib-bearing lumbar vertebral bodies are identified, maintaining normal height and alignment without evidence of fracture or spondylolisthesis. There is minimal anterior spurring involving the superior endplate of L4. The intervertebral disc spaces are preserved. The posterior elements are intact. The visualized paraspinal soft tissues are unremarkable. XR/XR lumbar spine 2-3V IMPRESSION: Minimal degenerative changes. Electronically signed by: Aayush Monae MD 05/16/2025 11:53 AM EDT Dictated By: Aayush Monae MD Signed By: <Electronically signed by Aayush Monae MD in OV> 05/16/25 1153 DD/ 1141 TD/TT: 05/16/25 1149 Sales Team Manager: [address] [address] XRay Report Signed Patient: Wilfrid Borrego MR#: [id number] : 1980 Acct:[id number] Age/Sex: 45 / M ADM Date: 05/16/25 Loc: HO.XRAY Attending Dr: Aayush Rice MD Ordering Physician: Aayush Rice MD Date of Service: 05/16/25 Procedure(s): XR lum bar spine 2-3V Accession Number(s): [id number] cc: Aayush Rice MD Reason for Exam: back pain EXAMINATION: XR LUMB AR SPINE 2-3 VIEWS HISTORY: back pain COMPARISON: There ar e no prior studies for comparison. FINDINGS: AP, latera l, and coned down views of the lumbar spine are submitted. Osseous mineralization is normal. Five nonrib-bearing lumbar vertebral bod ies are identified, maintaining normal height and alignment without ev idence of fracture or spondylolisthesis. There is minimal anterior spu rring involving the superior endplate of L4. The intervertebral disc spaces are preserved. The posterior elements are intact. The visualiz ed paraspinal soft tissues are unremarkable. X R/XR lumbar spine 2-3V IMPRESSION: Minimal degenerative changes. Electronically vitaly d by: Aayush Monae MD 05/16/2025 11:53 AM EDT RP Dictated By: Aayush Monae MD Signed By: <Electron ically signed by Aayush Monae MD in OV> 05/16/25 1153 DD/ 1141 TD/TT: 05/16/25 1149 Sales Team Manager: XR sacrum coccyx min 2V Reviewed date:05/18/2025 04:31:23 PM Interpretation: Performing Lab: Notes/Report: [place] [address] XRay Report Signed Patient: Jose Borrego MR#: [id number] : 1980 Acct:[id number] Age/Sex: 45 / M ADM Date: 05/16/25 Loc: HO.LEILA Attending Dr: Aayush Rice MD Ordering Physician: Aayush Rice MD Date of Service: 05/16/25 Procedure(s): XR sacrum coccyx min 2V Accession Number(s): [id number] cc: Aayush Rice MD Reason for Exam: back pain EXAMINATION: XR SACRUM COCCYX 2 OR MORE VIEWS HISTORY: back pain COMPARISON: There are no prior studies available for comparison. FINDINGS: Three views of the sacrum and coccyx are submitted. Osseous mineralization is normal. No fracture or lytic lesion is identified. XR/XR sacrum coccyx min 2V IMPRESSION: Unremarkable examination of the sacrum and coccyx. Electronically signed by: Aayush Monae MD 05/16/2025 11:54 AM EDT RP Dictated By: Aayush Monae MD Signed By: <Electronically signed by Aayush Monae MD in OV> 05/16/25 1154 DD/ 114 TD/TT: 05/16/25 1149 Sales Team Manager: [place] [address] XRay Report Signed Patient: Wilfrid Borrego MR#: [id number] : 1980 Acct:[id number] Age/Sex: 45 / M ADM Date: 05/16/25 Loc: JUAN Attending Dr: Aayush Rice MD Ordering Physician: Aayush Rice MD Date of Service: 05/16/25 Procedure(s): XR sac rum coccyx min 2V Accession Number(s): [id number] cc: Aayush Rice MD Reason for Exam: back pain EXAMINATION: XR SACR UM COCCYX 2 OR MORE VIEWS HISTORY: back pain COMPARISON: There ar e no prior studies available for comparison. FINDINGS: Three view s of the sacrum and coccyx are submitted. Osseous mineralization is no rmal. No fracture or lytic lesion is identified. X R/XR sacrum coccyx min 2V IMPRESSION: Unremarkable examina tion of the sacrum and coccyx. Electronically vitaly d by: Aayush Monae MD 05/16/2025 11:54 AM EDT RP Dictated By: Aayush Monae MD Signed By: <Saad nesbitt signed by Aayush Monae MD in OV> 05/16/25 1154 DD/ 1144 TD/TT: 05/16/25 1149 Sales Team Manager: REASON FOR VISIT Lower back pain, Diabetes, Sleep apnea, Hypertension, GERD, Asthma, Throat, Hypothyroid, Hyperlipidemia Medications Medication SIG (Take, Route, Frequency, Duration) Notes Start Date End Date Status Entresto 49-51 MG 1 tablet Orally Twic e a day Active Atorvastatin Calcium 80 MG 1 tablet Oral ly Once a day Active traMADol HCl 50 MG 1 tablet as needed Orally Once a day Active Spironolactone 50 MG 1 tablet Orally Onc e a day Active Clotrimazole-Betamethasone 1-0.05 % 1 application Externally Twice a day 04/09/2025 Active Albuterol Sulfate HFA 108 (90 Base) MCG/ACT 2 puffs as needed Inhalation four times a day 12/10/2013 Active predniSONE 20 MG 2 tablets with food or milk Orally Once a day 04/22/2025 Active traZODone HCl 100 MG 1 tablet at bedtime Orally Once a day Active Cyclobenzaprine HCl 10 MG 1 tablet Orall y three times a day 05/17/2025 Active Social History Tobacco Use: Social History Observation Description Date Details (start date - stop date) Former Smoker NA - NA Sex Assigned At : Social History Observation Description Sex Assigned At Male Tobacco Control (Standard) Question Answer Notes Tobacco use: Former smoker How long has it been since you last smoked? 5-10 years Additional Findings: Tobacco non-user Ex-cigaret te smoker Vital Signs Temperature 98.8 degrees Fahrenheit 05/16/20 25 Blood pressure systolic 135 mm Hg 05/16/20 25 Blood pressure diastolic 80 mm Hg 025 Heart Rate 101 /min 05/16/2025 Height 71 in 05/16/2025 Weight 327 lbs 05/16/2025 BMI 45.6 kg/m2 05/16/2025 Encounters Encounter Location Date Provider Diagnosis Aayush Rice III, MD [address] [place] [address] [place] [address] 05/16/2025 Aayush Rice Lumbar radiculopathy M54.16 ; Obesity 278.00 ; Former smoker Z87.891 ; Type 2 diabetes mellitus with hyperglycemia E11.65 ; Obstructive sleep apnea G47.33 ; Essential hypertension I10 ; GERD (gastroesophageal reflux disease) K21.9 ; Hypothyroidism, unspecified type E03.9 ; Other congestive heart failure I50.9 and Right anterior knee pain M25.561 Assessments Encounter Date Diagnosis (ICD Code) Assessment Notes Treat ment Notes Treatment Clinical Notes 05/16/2025 Lumbar radiculopathy (ICD-10 - M54.16) The x-rays done in the emergency room recently showed minimal degenerative changes. His back pain is better. The knee pain is his main complaint today. 05/16/2025 Obesity (ICD9-CM - 278.00) He has gained 2 pounds since his last visit which is likely fluid. I strongly encouraged him to continue with weight loss program. 05/16/2025 Former smoker (ICD-10 - Z87.891) He is motivated not to smoke. He has a plan to prevent relapse in times of stress. 05/16/2025 Type 2 diabetes mellitus with hyperglycemia (ICD-10 - E11.65) He will stay on his current regimen of medications for diabetes and try to lose weight at a rate of 1/2 pound per week. Periodic blood work will be done. 05/16/2025 Obstructive sleep apnea (ICD-10 - G47.33) I discussed with him the wisdom and importance of using his CPAP machine. He seems unlikely to use it every night as he does not perceive a benefit in how he feels. I have referred him back to the pulmonary doctor who prescribed it to see if it needs adjustment. 05/16/2025 Essential hypertension (ICD-10 - I10) His blood pressure is currently stable. We made a plan to lose weight at a rate of 1 pound per week and to pursue aggressive sodium restriction. 05/16/2025 GERD (gastroesophageal reflux disease) (ICD-10 - K21.9) His reflux has been well controlled with [id number]-vezjyng medications. No change in his regimen was needed today. I recommended weight reduction. 05/16/2025 Hypothyroidism, unspecified type (ICD-10 - E03.9) His total T4 was 3.7 with a TSH of 2.55. No change in his regimen was needed. 05/16/2025 Other congestive heart failure (ICD-10 - I50.9) CHF is well compensated at this time and he is not symptomatic with most of activities of daily life. 05/16/2025 Right anterior knee pain (ICD-10 - M25.561) He has an appointment arranged with orthopedic surgery. He was continued on current therapy. He was advised to use a heating pad on his knee and to rest it as much as possible. Plan Of Treatment Medication Medication Name Sig Start Date Stop Date Notes Entresto 49-51 MG 1 tablet Orally Twice a day Atorvastatin Calcium 80 MG 1 tablet Orally Once a day traMADol HCl 50 MG 1 tablet as needed O rally Once a day Spironolactone 50 MG 1 tablet Orally Once a day Clotrimazole-Betamethasone 1-0.05 % 1 application Externally Twice a day 04/09/2025 Albuterol Sulfate HFA 108 (9 0 Base) MCG/ACT 2 puffs as needed Inhalation four times a day 12/10/2013 predniSONE 20 MG 2 tablets with food or milk Orally Once a day 04/22/2025 traZODone HCl 100 MG 1 tablet at bedtime Orally Once a day Cyclobenzaprine HCl 10 MG 1 tablet Orall y three times a day 05/17/2025 Next Appt Details Follow Up: end of next week as scheduled, Reason: ov review x rays Provider Name:Aayush Houston Dwayne , 07/18/2025 09:45:00 AM, [address] [place] [address] [address], [place], [address], Provider Name:Aayush Meagan Dwayne , 04/10/2026 10:00:00 AM, [address] [place] [address] [address], [place], [address], Progress Notes * Jose BORREGO DDOB:[birth year] (45 yo M)Acc No.[id number]:05/16/2025 Progress Notes Patient: Tami Jose WALDRON Provider: Tani Rice MD :1980 A ge:45 Y S ex:Male Date:05/16/2025 Address:[address] [place] [phone] Subjective: * Chief Complaints: * L ower back painDiabetesSleep apneaHypertensionGERDAsthmaThroatHypothyroidHyperlipidemia * HPI: C OVID-19 Screening: He was seen recently with acute lumbar radiculopathy. After he was seen at worse and he went to a local emergency room. Imaging was unremarkable. His pain is now better. He has a new complaint of pain in the right knee. He has an appointment with orthopedics June 04, 2025. There was pain to pressure on his right knee on examination. It is painful sitting and standing. Questions H ave you had any new onset fever, chills, cough, congestion, sore throat, shortness of breath, muscle aches? N o * ROS: G eneral/Constitutional: pain L ow back down his legs, right knee with standing and sitting. C hills d enies. F atigue a dmits. F ever d enies. E NT: Decreased hearing d enies. R espiratory: Cough d enies. C ardiovascular: Chest pain with exertion d enies. D yspnea on exertion?denies. S hortness of breath d enies. G astrointestinal: Constipation a dmits. D ecreased appetite d enies.?Diarrhea d enies. H eartburn d enies. N ausea d enies. R ectal bleeding?denies. V omiting d enies. H ematology: bruising d enies. p etechiae d enies. S wollen glands n one have been noted. G enitourinary: Frequent urination d enies. M usculoskeletal: Muscle aches d enies. P ainful joints R ight knee and lumbar spine. S ciatica a ffecting both lower sides of the body. W eakness d enies. S kin: Itching d enies. R artem d enies. S kin lesion(s)?denies. N eurologic: Difficulty speaking d enies. D izziness d enies.?Headache d enies. L ow back pain t hat is new. P sychiatric: Depressed mood d enies. * Medical History: * Surgical History: L aparascopic sleeve gastrectomy, Upper endoscopy [id number] 07/2018cardiac catheterization, [facility], Dr. Atkins 10/16/2020 * Hospitalization/Major Diagno [...] has 3 children. He was born in [place], [place]. * Medications: T akingClotrimazole-Betamethasone 1-0.05 % [...] Medication List reviewed and reconciled with the patientTaking [...] Objective: * Vitals: H t: 71, Wt: 327, BMI:45.6, BP: 135/80, HR: 101, Temp: 98.8, Wt-k.32. * P ast Orders: I maging:XR sacrum coccyx min 2V (Order Date - 05/16/2025) (Performed Date - 05/16/2025) I maging:XR lumbar spine 2-3V (Order Date - 05/16/2025) (Performed Date - 05/16/2025) * Examination: G eneral Examination: GENERAL APPEARANCE: p leasant, well nourished, well developed, in no acute distress, calm and relaxed: obese: man. HEAD: a traumatic, normocephalic. EYES: [...] normal, no ascites, no organomegaly, no mass: centripital obesity. RECTAL EXAM: n ot examined. MUSCULOSKELETAL: P ain to pressure over the right patella with normal range of motion andpopliteal cyst, decreased range of motion lumbar spine. PERIPHERAL PULSES: n ormal. NEUROLOGIC: a lert and oriented, cranial nerves 2-12 grossly intact, deep tendon reflexes 2+ symmetrical, motor strength normal upper and lower extremities, sensory exam intact. PSYCH: a lert, oriented. Assessment: * Assessment: 1. L umbar radiculopathy - M54.16 (Primary) N otes :The x-rays done in the emergency room recently showed minimal degenerative changes. His back pain is better. The knee pain is his main complaint today. 2 . O besity - 278.00 N otes :He has gained 2 pounds since his last visit which is likely fluid. I strongly encouraged him to continue with weight loss program. 3 . F ormer smoker - Z87.891 N otes :He is motivated not to smoke. He has a plan to prevent relapse in times of stress. 4 . T ype 2 diabetes mellitus with hyperglycemia - E11.65 N otes :He will stay on his current regimen of medications for diabetes and try to lose weight at a rate of 1/2 pound per week. Periodic blood work will be done. 5 . O bstructive sleep apnea - G47.33 N otes :I discussed with him the wisdom and importance of using his CPAP machine. He seems unlikely to use it every night as he does not perceive a benefit in how he feels. I have referred him back to the pulmonary doctor who prescribed it to see if it needs adjustment. 6 . E ssential hypertension - I10 N otes :His blood pressure is currently stable. We made a plan to lose weight at a rate of 1 pound per week and to pursue aggressive sodium restriction. 7 . G ERD (gastroesophageal reflux disease) - K21.9 N otes :His reflux has been well controlled with lynm-zhq-bmaijva medications. No change in his regimen was needed today. I recommended weight reduction. 8 . H ypothyroidism, unspecified type - E03.9 N otes :His total T4 was 3.7 with a TSH of 2.55. No change in his regimen was needed. 9 . O ther congestive heart failure - I50.9 N otes :CHF is well compensated at this time and he is not symptomatic with most of activities of daily life. 1 0. R ight anterior knee pain - M25.561 N otes :He has an appointment arranged with orthopedic surgery. He was continued on current therapy.? He was advised to use a heating pad on his knee and to rest it as much as possible. Plan: * Treatment: 2. O thers Continue Clotrimazole-Betamethasone Cream, 1-0.05 %, 1 application, Externally, Twice a day; C ontinue Spironolactone Tablet, 50 MG, 1 tablet, Orally, Once a day; C ontinue Atorvastatin Calcium Tablet, 80 MG, 1 tablet, Orally, Once a day; C ontinue Entresto Tablet, 49-51 MG, 1 tablet, Orally, Twice a day; C ontinue traMADol HCl Tablet, 50 MG, 1 tablet as needed, Orally, Once a day; C ontinue Albuterol Sulfate HFA Aerosol Solution, 108 (90 Base) MCG/ACT, 2 puffs as needed, Inhalation, four times a day; C ontinue traZODone HCl Tablet, 100 MG, 1 tablet at bedtime, Orally, Once a day; C ontinue predniSONE Tablet, 20 MG, 2 tablets with food or milk, Orally, Once a day. * Imaging: * I maging: XR lumbar spine 2-3V (Performed Date - 05/16/2025) I maging: XR sacrum coccyx min 2V (Performed Date - 05/16/2025) * Procedure Codes: * Preventive Medicine: Counseling: [...] of tobacco use and urged to quit. 1 DM Care Plan: P atient Lifestyle Goals P atient wants to be able to manage diabetes without too much effort. T reatment Goals B lood Sugars less than < 115, HbA1C < 7.0. B arriers n o barriers. S elf-Managment Goals W ork on weight loss, with a goal of losing 1 lb per week. * Follow Up: e of next week as scheduled (Reason: ov review x rays) * Images: * Sign off status: Completed true * Provider: Tani Rice MD Date: Generated for Janis hood/Lindy/eThugosmitting on: 11:42 AM EDT History and Physical Notes * HPI (History of Present Illness) Category Sub-Category Detail Notes COVID-19 Screening Questions Have you had any new onset fever, chills, cough, congestion, sore throat, shortness of breath, muscle aches?: No Examination Category Sub-Category Detail Notes General Examination GENERAL APPEARANCE: pleasant , well nourished, well developed, in no acute distress, calm and relaxed: obese: man HEAD: atraumatic, normocep halic EYES: eomi, perrla, anicte daniela, conjugate EARS: normal NOSE: septum intact NECK/THYROID: no jugular venous di stention, no carotid bruit, thyroid normal HEART: no clicks, gallops, murmurs, or rubs, regular rhythm, S1, S2 normal, no s3, or vascular bruits LUNGS: clear to auscultatio n ABDOMEN: bowel sounds normal, no ascites, no organomegaly, no mass: centripital obesity NEUROLOGIC: alert and oriented, cranial nerves 2-12 grossly intact, deep tendon reflexes 2+ symmetrical, motor strength normal upper and lower extremities, sensory exam intact SKIN: no suspicious lesion s, anicteric PERIPHERAL PULSES: normal BREASTS: no masses palpable b ilaterally MUSCULOSKELETAL: Pain to pressure ove r the right patella with normal range of motion andpopliteal cyst, decreased range of motion lumbar spine LYMPH NODES: no enlarged lymph no corina,spleen normal RECTAL EXAM: not examined PSYCH: alert, oriented ORAL CAVITY: normal, unremarkable
--- OUTSIDE RECORDS SUMMARY | 2025-05-17 07:02 | XMS_ITS ---
Author Organization Aayush Rice III, MD Address [address] [place] [address] Care Team Providers Care Epic Specialist Name Role Phone Dr. Aayush Rice III Primary Care Provider REASON FOR VISIT Rx Request Social History Sex Assigned At : Social History Observation Description Sex Assigned At Male Encounters Encounter Location Date Provider Diagnosis Aayush Rice III, MD [address] [place] [address] [place] [address] 05/17/2025 Aayush Rice Plan Of Treatment Next Appt Details Provider Name:Aayush Garyne , 07/18/2025 09:45:00 AM, [address] [place] [address] [address], [place], [address], Provider Name:Aayush Rice , 04/10/2026 10:00:00 AM, [address] [place] [address] [address], [place], [address], Progress Notes * Jose ALVAREZ DDOB:[birth year] (45 yo M)Acc No.[id number]:05/17/2025 Patient: Tami Jose WALDRON :1980 A ge:45 Y S ex:Male Address:[address] [place] [phone] * true * Date: Generated for Janis hood/Lindy/Raghuitting on: 11:42 AM EDT
--- OUTSIDE RECORDS SUMMARY | 2025-05-17 09:44 | XMS_ITS ---
Author Organization Aayush Rice III, MD Address [address] [address] Care Team Providers Care Investor Relations Manager Name Role Phone Dr. Aayush Rice III Primary Care Provider [phone] Medications Medication SIG (Take, Route, Frequency, Duration) Notes Start Date End Date Status Cyclobenzaprine HCl 10 MG 1 tablet Orall y three times a day for 7 days 05/17/2025 05/31/2025 Active Social History Sex Assigned At : Social History Observation Description Sex Assigned At Male Encounters Encounter Location Date Provider Diagnosis Aayush Rice III, MD [address] [place] [address] [place] [address] 05/17/2025 Aayush Rice Plan Of Treatment Medication Medication Name Sig Start Date Stop Date Notes Cyclobenzaprine HCl 10 MG 1 tablet Orall y three times a day for 7 days 05/17/2025 05/31/2025 Next Appt Details Provider Name:Aayush Rice , 07/18/2025 09:45:00 AM, [address] [place] [address] [address], [place], [address], Provider Name:Aayush Rice , 04/10/2026 10:00:00 AM, [address] [place] [address] [address], [place], [address], Progress Notes * Jose ALVAREZ DDOB:[birth year] (45 yo M)Acc No.[id number]:05/17/2025 Patient: Jose WHALEN :1980 A ge:45 Y S ex:Male Address:[address] [place] [phone] * Refills Start Cyclobenzaprine HCl Tablet, 10 MG, Orally, 21 Tablet, 1 tablet, three times a day, 7 days, Refills=1 * true * Date: Generated for Janis hood/Lindy/Raghuitting on: 11:41 AM EDT
--- OUTSIDE RECORDS SUMMARY | 2025-05-24 12:45 | XMS_ITS ---
Author Organization Aayush Rice III, MD Address [address] [address] Care Team Providers Care Rubber Goods Cutter Finisher Name Role Phone Dr. Aayush Rice III Primary Care Provider [phone] REASON FOR VISIT Follow up Social History Sex Assigned At : Social History Observation Description Sex Assigned At Male Encounters Encounter Location Date Provider Diagnosis Aayush Rice III, MD [address] [place] [address] [place] [address] 05/24/2025 Aayush Rice Plan Of Treatment Next Appt Details Provider Name:Aayush Garyne , 07/18/2025 09:45:00 AM, [address] [place] [address] [address], [place], [address], Provider Name:Aayush Rice , 04/10/2026 10:00:00 AM, [address] [place] [address] [address], [place], [address], Progress Notes * JAHYESSENIAAlfredJose DDOB:[birth year] (45 yo M)Acc No.[id number]:05/24/2025 Progress Notes Patient: Jose WHALEN Provider: Tani Rice MD :1980 A ge:45 Y S ex:Male Date:05/24/2025 Address:[address] [place], [place] [phone] Subjective: * Chief Complaints: * 1 . Follow up. * Medical History: Objective: * Vitals: Assessment: Plan: * Treatment: * Images: * The named appointment provid er may or may not be the originator of this progress note, and it is not deemed complete until electronically signed by the appointment provider. Sign off status: Pending * Provider: Tani Rice MD Date: Generated for Janis hood/Lnidy/Raghuitting on: 11:41 AM EDT
--- OUTSIDE RECORDS SUMMARY | 2025-05-29 13:00 | XMS_ITS ---
Author Organization Aayush Rice III, MD Address [address] [place] [address] Care Team Providers Care Buckle Sorter Name Role Phone Dr. Aayush Rice III Primary Care Provider Allergies Allergen (clinical drug ingredient) Drug/Non Drug Allergy documented on EMR Reaction Allergy Type Onset Date Status No Known Drug Allergy Unknown Drug Allergy Active No Known Food Allergy Unknown Drug Allergy Active REASON FOR VISIT Follow up Medications Medication SIG (Take, Route, Frequency, Duration) Notes Start Date End Date Status Albuterol Sulfate HFA 108 (90 Base) MCG/ACT 2 puffs as needed Inhalation four times a day 12/10/2013 Active traZODone HCl 100 MG 1 tablet at bedtime Orally Once a day Active predniSONE 20 MG 2 tablets with food or milk Orally Once a day 04/22/2025 Active Entresto 49-51 MG 1 tablet Orally Twic e a day Active traMADol HCl 50 MG 1 tablet as needed Orally Once a day Active Cyclobenzaprine HCl 10 MG 1 tablet Orall y three times a day 05/17/2025 Active Clotrimazole-Betamethasone 1-0.05 % 1 application Externally Twice a day 04/09/2025 Active Spironolactone 50 MG 1 tablet Orally [...] Additional Findings: Tobacco non-user Ex-cigaret te smoker Encounters Encounter Location Date Provider Diagnosis Aayush Rice III, MD [address] [place] [address] 05/29/2025 Aayush Rice Plan Of Treatment Medication Medication Name Sig Start Date Stop Date Notes Albuterol Sulfate HFA 108 (9 0 Base) MCG/ACT 2 puffs as needed Inhalation four times a day 12/10/2013 traZODone HCl 100 MG 1 tablet at bedtime Orally Once a day predniSONE 20 MG 2 tablets with food or milk Orally Once a day 04/22/2025 Entresto 49-51 MG 1 tablet Orally Twice a day traMADol HCl 50 MG 1 tablet as needed O rally Once a day Cyclobenzaprine HCl 10 MG 1 tablet Orall y three times a day 05/17/2025 Clotrimazole-Betamethasone 1-0.05 % 1 application Externally Twice a day 04/09/2025 Spironolactone 50 MG 1 tablet Orally Once a day Atorvastatin Calcium 80 MG 1 tablet Orally Once a day Next Appt Details Provider Name:Aayush Rice , 07/18/2025 09:45:00 AM, [address] [place] [address] [address], [place], [address], Provider Name:Aayush Rice , 04/10/2026 10:00:00 AM, [address] [place] [address] [address], [place], [address], Progress Notes * Jose ALVAREZ DDOB:[birth year] (45 yo M)Acc No.[id number]:05/29/2025 Progress Notes Patient: Jose WHALEN Provider: Tani Rice MD :1980 A ge:45 Y S ex:Male Date:05/29/2025 Address:[address] [place] [id number] Subjective: * Chief Complaints: * 1 . Follow up. * HPI: C OVID-19 Screening: Questions H ave you had any new onset fever, chills, cough, congestion, sore throat, shortness of breath, muscle aches? N o * ROS: G eneral/Constitutional: pain o nly normal aches and pains. C hills d enies.?Fatigue a dmits. F ever d enies. E NT: Decreased hearing d enies. R espiratory: Cough d enies. C ardiovascular: Chest pain with exertion d enies. D yspnea on exertion?denies. S hortness of breath d enies. G astrointestinal: Constipation d enies. D ecreased appetite d enies.?Diarrhea d enies. [...] Depressed mood d enies. * Medical History: A sthma, Hypertension, Hyperlipidemia, Osteoarthritis, left knee, Obesity, Diabetes mellitus, obstructive sleep apnea treated with CPAP, Abnormal liver function tests, Tobacco dependence, Gout, Congestive heart failure, Cardiomyopathy, Coronavirus infection with pneumonia March 2020. * Surgical History: L aparascopic sleeve gastrectomy, Upper endoscopy 2017-08-05, sleeve 07/2018, cardiac catheterization, [facility], Dr. Atkins 10/16/2020. * Hospitalization/Major Diagno stic Procedure: D enies Past Hospitalization. * Family History: M other: alive, overwieght [...] dditional Findings: Tobacco non-user E x-cigarette smoker H e is unemployed at present. He is single. His ex- is Molly. He has 3 children. He was born in [place], [place]. * Medications: T olinda Clotrimazole-Betamethasone 1-0.05 % Cream 1 application Externally Twice a day , Taking Spironolactone 50 MG Tablet 1 tablet Orally Once a day , Taking Atorvastatin Calcium 80 MG Tablet 1 tablet Orally Once a day , Taking Entresto 49-51 MG Tablet 1 tablet Orally Twice a day , Taking traMADol HCl 50 MG Tablet 1 tablet as needed Orally Once a day , Taking Albuterol Sulfate HFA 108 (90 Base) MCG/ACT Aerosol Solution 2 puffs as needed Inhalation four times a day , Taking traZODone HCl 100 MG Tablet 1 tablet at bedtime Orally Once a day , Taking predniSONE 20 MG Tablet 2 tablets with food or milk Orally Once a day , Taking Cyclobenzaprine HCl 10 MG Tablet 1 tablet Orally three times a day , stop date 05/31/2025, Medication List reviewed and reconciled with the patient * Allergies: N o Known Drug Allergy, No Known Food Allergy. Objective: * Vitals: * Examination: G eneral Examination: GENERAL APPEARANCE: p leasant, well nourished, well developed, in no acute distress, calm and relaxed. HEAD: a traumatic, normocephalic. EYES: e hossein, [...] sounds normal, no ascites, no organomegaly, no mass. RECTAL EXAM: n ot examined. MUSCULOSKELETAL: e xtremities unremarkable, no clubbing, cyanosis or edema. PERIPHERAL PULSES: n ormal. NEUROLOGIC: a lert and oriented, cranial nerves 2-12 grossly intact, deep tendon reflexes 2+ symmetrical, motor strength normal upper and lower extremities, sensory exam intact. PSYCH: a lert, oriented. Assessment: Plan: * Treatment: * Images: * The named appointment provid er may or may not be the originator of this progress note, and it is not deemed complete until electronically signed by the appointment provider. Sign off status: Pending * Provider: Tani Rice MD Date: Generated for Janis hood/Lindy/Raghuitting on: 11:41 AM EDT History and Physical Notes * HPI (History of Present Illness) Category Sub-Category Detail Notes COVID-19 Screening Questions Have you had any new onset fever, chills, cough, congestion, sore throat, shortness of breath, muscle aches?: No Examination Category Sub-Category Detail Notes General Examination GENERAL APPEARANCE: pleasant , well nourished, well developed, in no acute distress, calm and relaxed HEAD: atraumatic, normocep halic EYES: eomi, perrla, anicte daneila, conjugate EARS: normal NOSE: septum intact NECK/THYROID: no jugular venous di stention, no carotid bruit, thyroid normal HEART: no clicks, gallops, murmurs, or rubs, regular rhythm, S1, S2 normal, no s3, or vascular bruits LUNGS: clear to auscultatio n ABDOMEN: bowel sounds normal, no ascites, no organomegaly, no mass NEUROLOGIC: alert and oriented, cranial nerves 2-12 [...]
--- OUTSIDE RECORDS SUMMARY | 2025-06-06 05:15 | XMS_ITS ---
Author Organization Aayush Rice III, MD Address [address] [address] Care Team Providers Care Oil Driller Name Role Phone Dr. Aayush Rice III Primary Care Provider [phone] Allergies Allergen (clinical drug ingredient) Drug/Non Drug Allergy documented on EMR Reaction Allergy Type Onset Date Status No Known Drug Allergy Unknown Drug Allergy Active No Known Food Allergy Unknown Drug Allergy Active Results Component Value Reference Range Notes Lipid Panel (Not yet reviewe d by provider) Interpretation: Performing Lab:[facility], [address] [place] [id number] Notes/Report: Triglycerides 145 <150 mg/dL Desirable Triglyceride: less than 150 mg/dL Borderline High Triglyceride 150-199 mg/dL High Triglyceride: 200-499 mg/dL Very High Triglyceride: greater than or equal to 5OO mg/dL Cholesterol 304 <200 mg/dL Desirable Cholesterol: less than 200 mg/dL Borderline High Cholesterol: 200-239 mg/dL High Cholesterol: greater than 239 mg/dL LDL Cholesterol Calculated 219 <100 mg/dL Desirable LDL: less than 100 mg/dL Near Optimal/Above Optimal LDL: 110-129 mg/dL Borderline High LDL: 130-159 mg/dL High LDL: 160-189 mg/dL Very High LDL: greater than or equal to 190 mg/dL HDL Cholesterol 56 >40 mg/dL Desirable HDL: greater than 40 mg/dL Note: This HDL assay may give artificially low results in patients with liver disease. Hemoglobin A1c (Not yet revi ewed by provider) Interpretation: Performing Lab:[address] [address] Notes/Report: Hemoglobin A1c % 6.2 <6.0 % Hemoglobin A1C Reference Range Adults: 4.8 - 6.0 % Non diabetic: < 6.0 % Goal: < 7.0 % Additional Action Suggested: > 8.0 % Note: Hemoglobin A1c results are invalid for patients with abnormal amounts of HbF. Blood transfusions may impact the HbA1c concentration in the patient sample. Estimated Average Glucose 131 eAG = Estimated average glucose which is %A1C expressed as average glucose, using the formula of the D6C-Djosfqh Average Glucose study (ADAG), Diabetes Care, Vol.31,#8, Mar. 2007 Reason For Referral Reason diabetic eye exam Diagnosis 1 Type 2 diabetes ninfa itus with hyperglycemia (E11.65) Referral Organization Aayush Rice III, MD Referring Provider First Name Aayush Referring Provider Last Name Dwayne Referring Provider Speciality Internal M edicine Referred Provider [facility], [facility] Daryl hardy Referred Provider Specialty Ophthalmolog y General Notes Radha Orellana CMA 06/06 09:52:02 AM > pt given information he is to call to make eye appt and call our office back with date and time Referral Priority Routine REASON FOR VISIT Follow up Medications Medication SIG (Take, Route, Frequency, Duration) Notes Start Date End Date Status Spironolactone 50 MG 1 tablet Orally Onc e a day Active Entresto 49-51 MG 1 tablet Orally Twic e a day Active Atorvastatin Calcium 80 MG 1 tablet Oral ly Once a day Active Albuterol Sulfate HFA 108 (90 Base) MCG/ACT 2 puffs as needed Inhalation four times a day 12/10/2013 Active traMADol HCl 50 MG 1 tablet as needed Orally Once a day Active predniSONE 20 MG 2 tablets with food or milk Orally Once a day 04/22/2025 Active Cyclobenzaprine HCl 10 MG 1 tablet Orall y three times a day 05/17/2025 Active Clotrimazole-Betamethasone 1-0.05 % 1 application Externally Twice a day 04/09/2025 Active traZODone HCl 100 MG 1 tablet at bedtime Orally Once a day Active OneTouch Verio - use to check blood sugars twice a week fasting In Vitro for 90 days 06/06/2025 Active Social History Tobacco Use: Social History [...] non-user Ex-cigaret te smoker Vital Signs Temperature 96.8 degrees Fahrenheit 06/06/20 25 Blood pressure systolic 142 mm Hg 06/06/20 25 Blood pressure diastolic 118 mm Hg 025 Heart Rate 100 /min 06/06/2025 Height 71 in 06/06/2025 Weight 326 lbs 06/06/2025 BMI 45.46 kg/m2 06/06/2025 Encounters Encounter Location Date Provider Diagnosis Aayush Rice III, MD [address] [place] [address] [address] [place], [place] [phone] 06/06/2025 Aayush Rice Type 2 diabetes ninfa itus with hyperglycemia E11.65 ; Essential hypertension I10 ; Obstructive sleep apnea G47.33 ; Pure hypercholesterolemia E78.0 ; Morbid obesity E66.01 and Lumbar back pain M54.50 Assessments Encounter Date Diagnosis (ICD Code) Assessment Notes T reatment Notes Treatment Clinical Notes 06/06/2025 Type 2 diabetes ninfa itus with hyperglycemia (ICD-10 - E11.65) 06/06/2025 Essential hypertensi on (ICD-10 - I10) 06/06/2025 Obstructive sleep ap yuliya (ICD-10 - G47.33) 06/06/2025 Pure hypercholestero lemia (ICD-10 - E78.0) 06/06/2025 Morbid obesity (ICD- 10 - E66.01) 06/06/2025 Lumbar back pain (IC D-10 - M54.50) Plan Of Treatment Medication Medication Name Sig Start Date Stop Date Notes Spironolactone 50 MG 1 tablet Orally Once a day Entresto 49-51 MG 1 tablet Orally Twice a day Atorvastatin Calcium 80 MG 1 tablet Orally Once a day Albuterol Sulfate HFA 108 (9 0 Base) MCG/ACT 2 puffs as needed Inhalation four times a day 12/10/2013 traMADol HCl 50 MG 1 tablet as needed O rally Once a day predniSONE 20 MG 2 tablets with food or milk Orally Once a day 04/22/2025 Cyclobenzaprine HCl 10 MG 1 tablet Orall y three times a day 05/17/2025 Clotrimazole-Betamethasone 1-0.05 % 1 application Externally Twice a day 04/09/2025 traZODone HCl 100 MG 1 tablet at bedtime Orally Once a day OneTouch Verio - use to check blood s ugars twice a week fasting In Vitro for 90 days 06/06/2025 Pending Test Test Name Order Date PROFILE, FASTING (COMPREHENSIVE METABOLI C) 06/06/2025 CBC w DIFF 06/06/2025 Lipid Panel 06/06/2025 Microalbumin, Random 06/06/2025 Hemoglobin A1c 06/06/2025 Referrals Referral Date Details 06/06/2025 06/06/2025, diabetic eye exam, [facility] Next Appt Details Follow Up: 6 Weeks, Reason: ov review labs Provider Name:Aayush Rice , 07/18/2025 09:45:00 AM, [address] [place] [address] [place], [address], Provider Name:Aayush Rice , 04/10/2026 10:00:00 AM, [address] [place] [address] [place], [address], Progress Notes * Jose ALVAREZ DDOB:[birth year] (45 yo M)Acc No.[id number]:06/06/2025 Progress Notes Patient: Jose WHALEN Provider: Tani Rice MD :1980 A ge:45 Y S ex:Male Date:06/06/2025 Address:[address] [place], [place] [id number] Subjective: * Chief Complaints: * 1 . Follow up. * HPI: C OVID-19 Screening: back filems avail, stopped his job, looking for new one. Questions H ave you had any new [...] Upper endoscopy 2017-08-05, sleeve 07/2018, cardiac catheterization, [facility], Dr. Atkins 10/16/2020. * Hospitalization/Major Diagno stic [...] has 3 children. He was born in [place], [place]. * Medications: T aking Cyclobenzaprine HCl 10 MG Tablet 1 tablet Orally three times a day , Taking Clotrimazole-Betamethasone 1-0.05 % Cream 1 application [...] or milk Orally Once a day , Medication List reviewed and reconciled with the patient * Allergies: N o Known Drug Allergy, No Known Food Allergy. Objective: * Vitals: H t: 71, Wt: 326, BMI:45.46, BP: 142/118, HR: 100, Temp: 96.8, Wt-k.87. * P ast Orders: I maging:XR sacrum [...] 2 diabetes mellitus with hyperglycemia - E11.65 2 . E ssential hypertension - I10 3 . O bstructive sleep apnea - G47.33 4 . P ure hypercholesterolemia - E78.0 5 . M orbid obesity - E66.01 6 . L umbar back pain - M54.50 Plan: * Treatment: Value Reference Range T riglycerides 145 <150 - mg/dL * C holesterol 304 H <200 - mg/dL * L DL Cholesterol Calculated 219 H <100 - mg/dL * H DL Cholesterol 56 >40 - mg/dL ?LAB: Microalbumin, Random ?LAB: Hemoglobin A1c (Collection Date & Time - 06/06/2025 10:00 AM)* Value Reference Range H emoglobin A1c % 6.2 H <6.0 - % * E stimated Average Glucose 131 - mg/dL ? Referral To:[facility]??Ophthalmology ?Reason:diabeticeye exam 2.?Essential hypertension?LAB: PROFILE, FASTING (COMPREHENSIVE METABOLIC) ?LAB: CBC w DIFF ?LAB: Lipid Panel (Collection Date & Time - 06/06/2025 10:00 AM)* Value Reference Range T riglycerides 145 <150 - mg/dL * C holesterol 304 H <200 - mg/dL * L DL Cholesterol Calculated 219 H <100 - mg/dL * H DL Cholesterol 56 >40 - mg/dL ?LAB: Microalbumin, Random ?LAB: Hemoglobin A1c (Collection Date & Time - 06/06/2025 10:00 AM)* Value Reference Range H emoglobin A1c % 6.2 H <6.0 - % * E stimated Average Glucose 131 - mg/dL 3.?Obstructive sleep apnea?LAB: PROFILE, FASTING (COMPREHENSIVE METABOLIC) ?LAB: CBC w DIFF ?LAB: Lipid Panel (Collection Date & Time - 06/06/2025 10:00 AM)* Value Reference Range T riglycerides 145 <150 - mg/dL * C holesterol 304 H <200 - mg/dL * L DL Cholesterol Calculated 219 H <100 - mg/dL * H DL Cholesterol 56 >40 - mg/dL ?LAB: Microalbumin, Random ?LAB: Hemoglobin A1c (Collection Date & Time - 06/06/2025 10:00 AM)* Value Reference Range H emoglobin A1c % 6.2 H <6.0 - % * E stimated Average Glucose 131 - mg/dL 4.?Morbid obesity?LAB: Lipid Panel (Collection Date & Time - 06/06/2025 10:00 AM)* Value Reference Range T riglycerides 145 <150 - mg/dL * C holesterol 304 H <200 - mg/dL * L DL Cholesterol Calculated 219 H <100 - mg/dL * H DL Cholesterol 56 >40 - mg/dL 5.?Others? Continue Cyclobenzaprine HCl Tablet, 10 MG, 1 tablet, Orally, three times a day;?Continue Clotrimazole-Betamethasone Cream, 1-0.05 %, 1 application, Externally, Twice a day;?Continue Spironolactone Tablet, 50 MG, 1 tablet, Orally, Once a day;?Continue Atorvastatin Calcium Tablet, 80 MG, 1 tablet, Orally, Once a day;?Continue Entresto Tablet, 49-51 MG, 1 tablet, Orally, Twice aday;?Continue traMADol HCl Tablet, 50 MG, 1 tablet as needed, Orally, Once a day;?Continue Albuterol Sulfate HFA Aerosol Solution, 108 (90 Base) MCG/ACT, 2 puffs as needed, Inhalation, fourtimes a day;?Continue traZODone HCl Tablet, 100 MG, 1 tablet at bedtime, Orally, Once a day; Continue predniSONE Tablet, 20 MG, 2 tablets with food or milk, Orally, Once a day.?? * Preventive Medicine: Counseling: C are goal [...] done: Medical or Other reason not done * Follow Up: 6 Weeks (Reason: ov review labs) * Images: * The named appointment provid er may or may not be the originator of this progress note, and it is not deemed complete until electronically signed by the appointment provider. Sign off status: Pending * Provider: Tani Rice MD Date: Generated for Janis hood/Lindy/James on: 11:42 AM EDT History and Physical [...] Date Referring Provider Referred Provider Not se 06/06/2025 Aayush Rice [facility], [facility] di abetic eye exam
[2025-06-06 10:17] LABS: MANUAL DIFF FLAG NO
[2025-06-06 10:24] LABS: Hematocrit 38.6 % (42.0-52.0); Hemoglobin 12.9 g/dl (14.0-18.0); Imm Gran Abs Auto 0.02 X10*3/uL (0.00-0.03); Imm Gran Pct Auto 0.4 % (0.0-0.4); Lymphocytes Absolute Auto 1.7 X10*3/uL (1.2-4.9); Mean Corpuscular HGB Conc 33.4 g/dl (31.0-36.0); Mean Corpuscular Hemoglobin 28.9 pg (27.0-33.0); Mean Corpuscular Volume 86.4 fL (80.0-98.0); NRBC Abs Auto 0.000 X10*3/uL (0.0-0.012); NRBC Pct Auto 0.0 /100WBC (0.0-0.2); Platelet Count 194 X10*3/uL (160-400); Red Blood Count 4.47 X10*6/uL (4.60-5.80); White Blood Count 5.5 X10*3/uL (4.8-10.8)
[2025-06-06 11:27] LABS: Alanine Aminotransferase 39 U/L (0-40); Albumin Level 4.7 g/dL (3.5-5.0); Alkaline Phosphatase 67 U/L (39-117); Anion Gap 11 (12-20); Aspartate Amino Transferase 34 U/L (5-37); Blood Urea Nitrogen 14 mg/dL (9-16); Calcium 8.9 mg/dL (8.4-10.2); Carbon Dioxide 30 mmol/L (22-29); Chloride 103 mmol/L (96-108); Cholesterol 304 mg/dL (<200); Estimated Glomerular Filt Rate > 60; HDL Cholesterol 56 mg/dL (>40); Potassium 4.4 mmol/L (3.3-5.1); Sodium 140 mmol/L (135-145); Total Protein 7.6 g/dL (6.5-8.0); Triglycerides 145 mg/dL (<150)
--- OUTSIDE RECORDS SUMMARY | 2025-06-06 11:41 | XMS_ITS | Patient Health Record ---
Author Organization Aayush Rice III, MD Address [address] [place] [address] Care Team Providers Care Collar Fuser Name Role Phone Dr. Aayush Rice III Primary Care Provider Allergies Allergen (clinical drug ingredient) Drug/Non Drug Allergy documented on EMR Reaction Allergy Type Onset Date Status No Known Drug Allergy Unknown Drug Allergy Active No Known Food Allergy Unknown Drug Allergy Active Results Component Value Reference Range Notes Lipid Panel (Not yet reviewe d by provider) Interpretation: Performing Lab:[facility], [address] [place] [id number] Notes/Report: Triglycerides 145 <150 mg/dL Desirable Triglyceride: [...] revi ewed by provider) Interpretation: Performing Lab:[address] [phone] Notes/Report: Hemoglobin A1c % 6.2 <6.0 % [...] average glucose, using the formula of the C0M-Dywihwy Average Glucose study (ADAG), Diabetes Care, Vol.31,#8, Mar. 2007 XR lumbar spine 2-3V Reviewed date:05/18/2025 04:31:23 PM Interpretation: Performing Lab: Notes/Report: [address] [place] [address] XRay Report Signed Patient: Jose Borrego MR#: [id number] : 1980 Acct:[id number] Age/Sex: 45 / M ADM Date: 05/16/25 Loc: HO.XRAY Attending Dr: Aayush Rice MD Ordering Physician: Aayush Rice MD Date of Service: 05/16/25 Procedure(s): XR lumbar spine 2-3V Accession Number(s): [id number] cc: Aayush Rice MD Reason for Exam: [...] 05/16/25 1153 DD/ 1141 TD/TT: 05/16/25 1149 Research Chemical Engineer: [place] [address] XRay Report Signed Patient: Jose Borrego MR#: [id number] : 1980 Acct:[id number] Age/Sex: 45 / M ADM Date: 05/16/25 Loc: HO.XRAY Attending Dr: Aayush Rice MD Ordering Physician: Aayush Rice MD Date of Service: 05/16/25 Procedure(s): XR lumbar spine 2-3V Accession Number(s): [id number] cc: Aayush Rice MD Reason for Exam: kelly k pain EXAMINATION: XR LUMB AR SPINE 2-3 [...] visualiz ed paraspinal soft tissues are unremarkable. XR/XR lumbar spine 2-3V IMPRESSION: Minimal degenerative changes. Electronically vitaly d by: Aayush Monae MD 05/16/2025 11:53 AM EDT RP Dictated By: Aayush Monae MD Signed By: <Electronically signed by Aayush Monae MD in OV> 05/16/25 1153 DD/ 1141 TD/TT: 05/16/25 1149 Research Chemical Engineer: XR sacrum coccyx min 2V Reviewed date:05/18/2025 04:31:23 PM Interpretation: Performing Lab: Notes/Report: [address] [address] XRay Report Signed Patient: Jose Borrego MR#: [id number] : 1980 Acct:[id number] Age/Sex: 45 / M ADM Date: 05/16/25 Loc: HOJENNY Attending Dr: Aayush Rice MD Ordering Physician: Aayush Rice MD Date of Service: 05/16/25 Procedure(s): XR sacrum coccyx min 2V Accession Number(s): [id number] cc: Aayush Rice MD Reason for Exam: [...] 05/16/25 1154 DD/ 1144 TD/TT: 05/16/25 1149 Research Chemical Engineer: [address] [address] XRay Report Signed Patient: Jose Borrego MR#: [id number] : 1980 Acct:[id number] Age/Sex: 45 / M ADM Date: 05/16/25 Loc: JUAN Attending Dr: Aayush Rice MD Ordering Physician: Aayush Rice MD Date of Service: 05/16/25 Procedure(s): XR sacrum coccyx min 2V Accession Number(s): [id number] cc: Aayush Rice MD Reason for Exam: kelly k pain EXAMINATION: XR SACR UM COCCYX 2 OR MORE VIEWS HISTORY: back pain COMPARISON: There ar e no prior studies available for comparison. FINDINGS: Three view s of the sacrum and coccyx are submitted. Osseous mineralization is normal. No fracture or lytic lesion is identified. XR/XR sacrum coccyx min 2V IMPRESSION: Unremarkable examination of the sacrum and coccyx. Electronically vitaly d by: Aayush Monae MD 05/16/2025 11:54 AM EDT RP Dictated By: Aayush Monae MD Signed By: <Electronically signed by Aayush Monae MD in OV> 05/16/25 1154 DD/ 1144 TD/TT: 05/16/25 1149 Research Chemical Engineer: Complete Blood Count Auto Di ff (Not yet reviewed by provider) Interpretation: Performing Lab:[facility], [address] [place] [id number] Notes/Report: White Blood Count 5.5 4.8-10.8 X10*3/uL Red Blood Count 4.47 4.60-5.80 X10*6/uL Hemoglobin 12.9 14.0-18.0 g/dl Hematocrit 38.6 42.0-52.0 % Mean Corpuscular Volume 86.4 80.0-98.0 fL Mean Corpuscular Hemoglobin 28.9 27.0-33.0 pg Mean Corpuscular HGB Conc 33.4 31.0-36.0 g/dl Red Cell Distribution Width 13.2 11.0-16.0 % Platelet Count 194 160-400 X10*3/uL Mean Platelet Volume 9.8 9.4-12.4 fL Neutrophils Percent Auto 53.7 45-73 % Imm Gran Pct Auto 0.4 0.0-0.4 % Lymphocytes Percent Auto 30.8 20-40 % Monocytes Percent Auto 10.3 2-11 % Eosinophils Percent Auto 4.2 0-4 % Basophils Percent Auto 0.6 0-2 % NRBC Pct Auto 0.0 0.0-0.2 /100WBC Neutrophils Absolute Auto 2.9 2.0-8.3 x10*3/u L Imm Gran Abs Auto 0.02 0.00-0.03 X10*3/uL Lymphocytes Absolute Auto 1.7 1.2-4.9 X10*3/u L Monocytes Absolute Auto 0.6 0.1-1.2 X10*3/uL Eosinophils Absolute Auto 0.2 0.0-0.4 X10*3/u L Basophils Absolute Auto 0.0 0.0-0.2 X10*3/uL NRBC Abs Auto 0.000 0.0-0.012 X10*3/uL Comprehensive [place]. Panel Fa st (Not yet reviewed by provider) Interpretation: Performing Lab:[facility], [address] [place] [phone] Notes/Report: Sodium 140 135-145 mmol/L Potassium 4.4 3.3-5.1 mmol/L Chloride 103 96-108 mmol/L Carbon Dioxide 30 22-29 mmol/L Anion Gap 11 12-20 Blood Urea Nitrogen 14 9-16 mg/dL Creatinine 0.81 0.5-1.4 mg/dL Estimated Glomerular Filt Rate > 60 Chronic Kidney Disease: Estimated GFR < 60 mL/min/1.73m2 Severe Kidney Disease: Estimated GFR < 15 mL/min/1.73m2 Glucose Fasting 147 60-99 mg/dL A fasting glucose of 126 mg/dl or greater on more than one occasion is considered diagnostic of diabetes. Calcium 8.9 8.4-10.2 mg/dL Bilirubin Total 0.8 0.0-1.0 mg/dL Aspartate Amino Transferase 34 5-37 U/L Alanine Aminotransferase 39 0-40 U/L Total Protein 7.6 6.5-8.0 g/dL Albumin Level 4.7 3.5-5.0 g/dL Alkaline Phosphatase 67 39-117 U/L Reason For Referral Reason Consult and Treat Screen for colon cancer Diagnosis 1 Screen for colon can cer (Z12.11) Referral Organization Aayush Rice III, MD Referring Provider First Name Aayush Referring Provider Last Name Dwayne Referring Provider Speciality Internal M edicine Referred Provider Aayush Zapien Referred Provider Specialty Gastroentero logy Referral Priority Routine Reason Evaluate and Treat Right Knee Pain Diagnosis 1 Right anterior knee pain (M25.561) Referral Organization Aayush Rice III, MD Referring Provider First Name Aayush Referring Provider Last Name Dwayne Referring Provider Speciality Internal M edicine Referred Provider Ivan Nieto [facility], [facility] Referred Provider Specialty Orthopedic S osvaldo General Notes Sonia Benavides 05/01/2025 04:30:19 PM > referral and progress notes faxed. Patient advised to call to schedule appointment Referral Priority Routine Reason diabetic eye exam Diagnosis 1 Type 2 diabetes ninfa itus with hyperglycemia (E11.65) Referral Organization Aayush Rice III, MD Referring Provider First Name Aayush Referring Provider Last Name Dwayne Referring Provider Speciality Internal M edicine Referred Provider [facility], [facility] [place] Referred Provider Specialty Ophthalmolog y General Notes Radha Orellana CMA 06/06 09:52:02 AM > pt given information he is to call to make eye appt and call our office back with date and time Referral Priority Routine Medications Medication SIG (Take, Route, Frequency, Duration) Notes Start Date End Date Status predniSONE 20 MG 2 tablets with food or milk Orally Once a day 04/22/2025 Active Cyclobenzaprine HCl 10 MG 1 tablet Orall y three times a day 05/17/2025 Active Spironolactone 50 MG 1 tablet Orally Onc e a day Active Clotrimazole-Betamethasone 1-0.05 % 1 application Externally Twice a day 04/09/2025 Active Entresto 49-51 MG 1 tablet Orally Twic e a day Active Atorvastatin Calcium 80 MG 1 tablet Oral ly Once a day Active Albuterol Sulfate HFA 108 (90 Base) MCG/ACT 2 puffs as needed Inhalation four times a day 12/10/2013 Active traMADol HCl 50 MG 1 tablet as needed Orally Once a day Active traZODone HCl 100 [...] Never (0 point) Points 4 Interpretation Positive Problems Problem Type SNOMED Code ICD Code Onset Dates Problem Status W/U Status Risk Notes Problem Obesity (461918600) Obesity (278.00) Active confirmed He has gained 2 pounds since his last visit which is likely fluid. I strongly encouraged him to continue with weight loss program. Problem 6970988 Former smoker (Z87.891) Active confirmed He is motivated not to smoke. He has a plan to prevent relapse in times of stress. Problem DM - Diabetes mellitus (29555005) DM (diabetes mellitus) (E11.9) Active confirmed Problem 806969716 Lumbar radiculopathy (M54.16) Active confirmed The x-rays done in the emergency room recently showed minimal degenerative changes. His back pain is better. The knee pain is his main complaint today. Problem 703983379 GERD (gastroesophageal reflux disease) (K21.9) Active confirmed His reflux has been well controlled with wpah-zzy-nbogl er medications. No change in his regimen was needed today. I recommended weight reduction. Problem 39000029 Type 2 diabetes mellitus with hyperglycemia (E11.65) Active confirmed He will stay on his current regimen of medications for diabetes and try to lose weight at a rate of 1/2 pound per week. Periodic blood work will be done. Problem 751669326 Pure hypercholesterolemi a (E78.0) Active confirmed Problem 483996189 Mixed hyperlipidemia (E78.2) Active confirmed Comprehensive blood work includding a fasting lipid profile has been ordered. He was counseled about aggressive weight loss. We discussed diet and nutrition. Problem 73278424 Essential hypertension (I10) Active confirmed His blood pressure is currently stable. We made a plan to lose weight at a rate of 1 pound per week and to pursue aggressive sodium restriction. Problem 79078826 Obstructive slee p apnea (G47.33) Active confirmed I discussed with him the wisdom and importance of using his CPAP machine. He seems unlikely to use it every night as he does not perceive a benefit in how he feels. I have referred him back to the pulmonary doctor who prescribed it to see if it needs adjustment. Problem 049541471 Osteoarthritis (M19.90) Active confirmed His mild knee pain. There is no crepitus. He will avoid the use of nonsteroidal anti-inflammat ory agents. Problem 264629293 ED (erectile dysfunction) (N52.9) Active confirmed If necessary, he will be given medication for this. Problem 250672353 Morbid obesity (E66.01) Active confirmed We reviewed his diet and his nutrition and his weight and his body mass index. I reviewed his weight loss strategy. I recommended weight loss at a rate of 1/2 pound per week through a diet restricted in concentrated sweets calories and animal fat and sodium. Problem Hypothyroidism (25767316) Hypothyroidism, unspecified type (E03.9) Active confirmed His total T4 was 3.7 with a TSH of 2.55. No change in his regimen was needed. Problem 475163289 Mild asthma with out complication, unspecified whether persistent (J45.909) Active confirmed There was no wheezing noted today and he was breathing comfortably. He reports he has not recently had any asthma. 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 It was treated with prednisone. Problem 023793952 Right anterior k nee pain (M25.561) Active confirmed He has an appointment arranged with orthopedic surgery. He was continued on current therapy. He was advised to use a heating pad on his knee and to rest it as much as possible. Problem Heart failure (13680575) Other congestive heart failure (I50.9) Active confirmed CHF is well compensated at this time and he is not symptomatic with most of activities of daily life. Problem 008883293 COVID-19 virus infection (U07.1) Active confirmed He will re main in quarantine. He will avoid as much contact with his is possible. He will call me if she becomes symptomatic. Problem 461262175 Coronavirus infection (B34.2) Active confirmed He has recovered and is no longer infectious. He may come out of quarantine. No medication is needed. The symptoms of his viral pneumonia or receding. Vital Signs Heart Rate 100 /min 06/06/2025 Temperature 96.8 degrees Fahrenheit 06/06/2025 Blood pressure diastolic 118 mm Hg 06/06/2025 Height 71 in 06/06/2025 Blood pressure systolic 142 mm Hg 06/06/2025 Weight 326 lbs 06/06/2025 BMI 45.46 kg/m2 06/06/2025 Encounters Encounter Location Date Provider Diagnosis Aayush Rice III, MD [address] [place] [address] [place] [address] 06/06/2025 Aayush Rice Type 2 diabetes ninfa itus with hyperglycemia E11.65 ; Essential hypertension I10 ; Obstructive sleep apnea G47.33 ; Pure hypercholesterolemia E78.0 ; Morbid obesity E66.01 and Lumbar back pain M54.50 Aayush Rice III, MD [address] [place] [address] [place] [address] 04/09/2025 Aayush Rice Type 2 diabetes ninfa itus with hyperglycemia E11.65 ; ED (erectile dysfunction) N52.9 ; Essential hypertension I10 ; Mixed hyperlipidemia E78.2 ; Obstructive sleep apnea G47.33 and Former smoker Z87.891 Aayush Rice III, MD [address] [place] [address] [place] [address] 04/22/2025 Aayush Rice Type 2 diabetes ninfa itus with hyperglycemia E11.65 ; 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, unspecified site M1A.40X0 ; Former smoker Z87.891 ; Obstructive sleep apnea G47.33 ; Essential hypertension I10 ; GERD (gastroesophageal reflux disease) K21.9 ; Other congestive heart failure I50.9 and Hypothyroidism, unspecified type E03.9 Aayush Rice III, MD [address] [place] [address] [place] [address] 04/26/2025 Aayush Rice Right anterior knee pain M25.561 ; Type 2 diabetes mellitus with hyperglycemia E11.65 ; Former smoker Z87.891 ; Other congestive heart failure I50.9 ; Hypothyroidism, unspecified type E03.9 ; Mixed hyperlipidemia E78.2 ; Morbid obesity E66.01 ; 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, unspecified site M1A.40X0 ; Lumbar radiculopathy M54.16 and Mild asthma without complication, unspecified whether persistent J45.909 Aayush Rice III, MD [address] [place] [address] [place] [address] 05/16/2025 Aayush Rice Lumbar radiculopathy M54.16 ; Obesity 278.00 ; Former smoker Z87.891 ; Type 2 diabetes mellitus with hyperglycemia E11.65 ; Obstructive sleep apnea G47.33 ; Essential hypertension I10 ; GERD (gastroesophageal reflux disease) K21.9 ; Hypothyroidism, unspecified type E03.9 ; Other congestive heart failure I50.9 and Right anterior knee pain M25.561 Aayush Rice III, MD [address] [place] [address] [place] [address] 10/08/2024 Aayush Rice III, MD [address] [place] [address] [place] [address] 04/10/2025 Aayush Rice Type 2 diabetes ninfa itus with hyperglycemia E11.65 Aayush Rice III, MD [address] [place] [address] [place] [phone] 05/17/2025 Aayush Rice III, MD [address] [place] [address] [place] [address] 05/17/2025 Aayush Rice Assessments Encounter Date Diagnosis (ICD Code) Assessment Notes T reatment Notes Treatment Clinical Notes 06/06/2025 Type 2 diabetes ninfa itus with hyperglycemia (ICD-10 - E11.65) 04/09/2025 Type 2 diabetes ninfa itus with hyperglycemia (ICD-10 - E11.65) He will stay on his current regimen of medications for diabetes and try to lose weight at a rate of 1/2 pound per week. Comprehensive blood work will be ordered. His medication will be adjusted was not is available. 04/09/2025 ED (erectile dysfunc tion) (ICD-10 - N52.9) If necessary, he will be given medication for this. 04/22/2025 Type 2 diabetes ninfa itus with hyperglycemia (ICD-10 - E11.65) He will stay on his current regimen of medications for diabetes and try to lose weight at a rate of 1/2 pound per week. Periodic blood work will be done. 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 It was treated with prednisone. 04/26/2025 Right anterior knee pain (ICD-10 - M25.561) Appointment with orthopedic surgery will be arranged. He will continue with heat and rest and acetaminophen. 05/16/2025 Obesity (ICD9-CM - 278.00) He has gained 2 pounds since his last visit which is likely fluid. I strongly encouraged him to continue with weight loss program. 05/16/2025 Lumbar radiculopathy (ICD-10 - M54.16) The x-rays done in the emergency room recently showed minimal degenerative changes. His back pain is better. The knee pain is his main complaint today. 04/10/2025 Type 2 diabetes ninfa itus with hyperglycemia (ICD-10 - E11.65) He will stay on his current regimen of medications for diabetes and try to lose weight at a rate of 1/2 pound per week. Periodic blood work will be done. 06/06/2025 Essential hypertensi on (ICD-10 - I10) 04/09/2025 Essential hypertensi on (ICD-10 - I10) His blood pressure is currently stable. We made a plan to lose weight at a rate of 1 pound per week and 2 pursue aggressive sodium restriction. 04/22/2025 Former smoker (ICD-1 0 - Z87.891) He is motivated not to smoke. He has a plan to prevent relapse in times of stress. 04/26/2025 Former smoker (ICD-1 0 - Z87.891) He is motivated not to smoke. He has a plan to prevent relapse in times of stress. 04/26/2025 Type 2 diabetes ninfa itus with hyperglycemia (ICD-10 - E11.65) He will stay on his current regimen of medications for diabetes and try to lose weight at a rate of 1/2 pound per week. Periodic blood work will be done. 05/16/2025 Former smoker (ICD-1 0 - Z87.891) He is motivated not to smoke. He has a plan to prevent relapse in times of stress. 06/06/2025 Obstructive sleep ap yuliya (ICD-10 - G47.33) 04/09/2025 Mixed hyperlipidemia (ICD-10 - E78.2) Comprehensive blood work includding a fasting lipid profile has been ordered. He was counseled about aggressive weight loss. We discussed diet and nutrition. 04/22/2025 Obstructive sleep ap yuliya (ICD-10 - G47.33) I discussed with him the wisdom and importance of using his CPAP machine. He seems unlikely to use it every night as he does not perceive a benefit in how he feels. I have referred him back to the pulmonary doctor who prescribed it to see if it needs adjustment. 04/26/2025 Other congestive hea rt failure (ICD-10 - I50.9) CHF is well compensated at this time and he is not symptomatic with most of activities of daily life. 05/16/2025 Type 2 diabetes ninfa itus with hyperglycemia (ICD-10 - E11.65) He will stay on his current regimen of medications for diabetes and try to lose weight at a rate of 1/2 pound per week. Periodic blood work will be done. 06/06/2025 Pure hypercholestero lemia (ICD-10 - E78.0) 04/09/2025 Obstructive sleep ap yuliya (ICD-10 - G47.33) I discussed with him the wisdom and importance of using his CPAP machine. He seems unlikely to use it every night as he does not perceive a benefit in how he feels. I have referred him back to the pulmonary doctor who prescribed it to see if it needs adjustment. 04/22/2025 Essential hypertensi on (ICD-10 - I10) His blood pressure is currently stable. We made a plan to lose weight at a rate of 1 pound per week and to pursue aggressive sodium restriction. 04/26/2025 Hypothyroidism, unspecified type (ICD-10 - E03.9) His total T4 was 3.7 with a TSH of 2.55. No change in his regimen was needed. 05/16/2025 Obstructive sleep ap yuliya (ICD-10 - G47.33) I discussed with him the wisdom and importance of using his CPAP machine. He seems unlikely to use it every night as he does not perceive a benefit in how he feels. I have referred him back to the pulmonary doctor who prescribed it to see if it needs adjustment. 06/06/2025 Morbid obesity (ICD- 10 - E66.01) 04/09/2025 Former smoker (ICD-1 0 - Z87.891) He is motivated not to smoke. He has a plan to prevent relapse in times of stress. 04/22/2025 GERD (gastroesophage al reflux disease) (ICD-10 - K21.9) His reflux has been well controlled with hfpr-gqm-nwyqncb medications. No change in his regimen was needed today. I recommended weight reduction. 04/26/2025 Mixed hyperlipidemia (ICD-10 - E78.2) Comprehensive blood work includding a fasting lipid profile has been ordered. He was counseled about aggressive weight loss. We discussed diet and nutrition. 05/16/2025 Essential hypertensi on (ICD-10 - I10) His blood pressure is currently stable. We made a plan to lose weight at a rate of 1 pound per week and to pursue aggressive sodium restriction. 06/06/2025 Lumbar back pain (IC D-10 - M54.50) 04/22/2025 Other congestive hea rt failure (ICD-10 - I50.9) CHF is well compensated at this time and he is not symptomatic with most of activities of daily life. 04/26/2025 Morbid obesity (ICD- 10 - E66.01) We reviewed his diet and his nutrition and his weight and his body mass index. I reviewed his weight loss strategy. I recommended weight loss at a rate of 1/2 pound per week through a diet restricted in concentrated sweets calories and animal fat and sodium. 05/16/2025 GERD (gastroesophage al reflux disease) (ICD-10 - K21.9) His reflux has been well controlled with emtz-ikw-jfizyhs medications. No change in his regimen was needed today. I recommended weight reduction. 04/22/2025 Hypothyroidism, unspecified type (ICD-10 - E03.9) His total T4 was 3.7 with a TSH of 2.55. No change in his regimen was needed. 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 It was treated with prednisone. 05/16/2025 Hypothyroidism, unspecified type (ICD-10 - E03.9) His total T4 was 3.7 with a TSH of 2.55. No change in his regimen was needed. 04/26/2025 Lumbar radiculopathy (ICD-10 - M54.16) His wheezing today is absent and his asthma recently has been mild. He is much less short of breath and when he went to the [facility] on October 13. 05/16/2025 Other congestive hea rt failure (ICD-10 - I50.9) CHF is well compensated at this time and he is not symptomatic with most of activities of daily life. 04/26/2025 Mild asthma without complication, unspecified whether persistent (ICD-10 - J45.909) There was no wheezing noted today and he was breathing comfortably. He reports he has not recently had any asthma. 05/16/2025 Right anterior knee pain (ICD-10 - M25.561) He has an appointment arranged with orthopedic surgery. He was continued on current therapy. He was advised to use a heating pad on his knee and to rest it as much as possible. Plan Of Treatment Pending Test Test Name Order Date RPR QUANTITATIVE 07/14/2020 PROFILE, FASTING (COMPREHENSIVE METABOLI C) 01/06/2021 PROFILE, FASTING (COMPREHENSIVE METABOLI C) 06/06/2025 PROFILE, FASTING (COMPREHENSIVE METABOLI C) 12/04/2019 PROFILE, FASTING (COMPREHENSIVE METABOLI C) 06/13/2020 PROFILE, FASTING (COMPREHENSIVE METABOLI C) 09/04/2019 PROFILE, FASTING (COMPREHENSIVE METABOLI C) 05/02/2020 PROFILE, FASTING (COMPREHENSIVE METABOLI C) 04/09/2025 PROFILE, FASTING (COMPREHENSIVE METABOLI C) 04/08/2021 PROFILE, FASTING (COMPREHENSIVE METABOLI C) 07/30/2020 PROFILE, FASTING (COMPREHENSIVE METABOLI C) 01/30/2021 PROFILE, FASTING (COMPREHENSIVE METABOLI C) 03/03/2020 PROFILE, RANDOM (COMPREHENSIVE METABOLIC ) 01/22/2020 PROFILE, RANDOM (COMPREHENSIVE METABOLIC ) 12/17/2020 HEMOGLOBIN A1C (GLYCOHEMOGLOBIN) 021 HEMOGLOBIN A1C (GLYCOHEMOGLOBIN) 020 HEMOGLOBIN A1C (GLYCOHEMOGLOBIN) 021 HEMOGLOBIN A1C (GLYCOHEMOGLOBIN) 020 HEMOGLOBIN A1C (GLYCOHEMOGLOBIN) 021 HEMOGLOBIN A1C (GLYCOHEMOGLOBIN) 020 HEMOGLOBIN A1C (GLYCOHEMOGLOBIN) 020 HEMOGLOBIN A1C (GLYCOHEMOGLOBIN) 020 HEMOGLOBIN A1C (GLYCOHEMOGLOBIN) 020 HEMOGLOBIN A1C (GLYCOHEMOGLOBIN) 020 URIC ACID 06/13/2020 URIC ACID 12/04/2019 LIPID PANEL 12/04/2019 LIPID PANEL 09/04/2019 LIPID PANEL 05/02/2020 LIPID PANEL 06/13/2020 LIPID PANEL 07/30/2020 LIPID PANEL 01/30/2021 LIPID PANEL 03/03/2020 LIPID PANEL 01/22/2020 LIPID PANEL 12/17/2020 T4 (THYROXINE) 12/17/2020 FREE T4 (FT4) 01/22/2020 TSH (THYROID STIMULATING HORMONE) 2019 TSH (THYROID STIMULATING HORMONE) 2020 PSA, TOTAL 04/09/2025 MICROALBUMIN, RANDOM 04/08/2021 MICROALBUMIN, RANDOM 05/02/2020 MICROALBUMIN, RANDOM 06/13/2020 MICROALBUMIN, RANDOM 01/30/2021 CBC w DIFF 04/09/2025 CBC w DIFF 12/04/2019 CBC w DIFF 09/04/2019 CBC w DIFF 01/22/2020 CBC w DIFF 01/06/2021 CBC w DIFF 06/06/2025 CBC w DIFF 12/17/2020 CBC w DIFF 04/08/2021 CBC w DIFF 05/02/2020 CBC w DIFF 07/30/2020 CBC w DIFF 03/03/2020 CBC w DIFF 06/13/2020 CBC w DIFF 01/30/2021 SED RATE (ESR) 12/17/2020 MRI LUMBAR SPINE NO CONTRAST 07/13/2017 MRI LUMBAR SPINE NO CONTRAST 02/04/2020 XR ANKLE RT 09/16/2017 XR CHEST 2 VIEW PA & LAT 03/13/2018 Complete Blood Count Auto Diff 5 Comprehensive [place]. Panel Fast Lipid Panel 04/09/2025 Lipid Panel 01/06/2021 Lipid Panel 06/06/2025 Lipid Panel 04/08/2021 Microalbumin, Random 04/09/2025 Microalbumin, Random 01/06/2021 Microalbumin, Random 06/06/2025 Hemoglobin A1c 04/09/2025 Hemoglobin A1c 12/17/2020 Hemoglobin A1c 06/06/2025 Next Appt Details Provider Name:Aayush Rice , 07/18/2025 09:45:00 AM, [address] [facility] [place], [place], [address], Provider Name:Aayush Rice , 04/10/2026 10:00:00 AM, [address] [place] [address] [place], [place], [address], Insurance Providers Payer Name Payer Address Payer Phone Subscriber Number Group Number Insured Name Patient Relationship to Insured Coverage Start Date Coverage End Date MEDICARE NGS [address] [place] [address] [id number] Jose Borrego Self - patient is the insured MEDICA[place] [address] [place] [id number] Jose Borrego Self - patient is the insured Medical (General) History Medical History History ICD Code asthma hypertension hyperlipidemia osteoarthritis, left knee obesity diabetes mellitus obstructive sleep apnea treated with CPA P abnormal liver function tests tobacco dependence gout congestive heart failure cardiomyopathy Coronavirus infection with pneumonia Mar Surgical History Surgery Date(Month/Year) cardiac catheterization, [facility] Dr. Wilbert Duran 10/16/2020 sleeve 07/2018 Laparascopic sleeve gastrectomy, Upper e ndoscopy 2017-08-05
--- OUTSIDE RECORDS SUMMARY | 2025-06-06 11:41 | XMS_ITS | Clinical Summary ---
Author Organization [facility] Address [address] [place] [address] Phone Care Team Providers Care Angledozer Operator Name Role Phone Aayush Rice MD Primary Care Provider [phone] Allergies No known active allergies Medications ibuprofen (ADVIL,MOTRIN) 600 mg tablet Take 1 tablet (600 mg total) by mouth every 6 (six) hours if needed for mild pain. 30 tablet 01/08/2025 Active hydrOXYzine HCL (ATARAX) 25 mg tablet Take 1 tablet (25 mg total) by mouth every 8 (eight) hours if needed for anxiety. 30 tablet 05/06/2025 Active Active Problems No known active problems Encounters Date Type Department Care Team Description 05/06/2025 3:27 PM EDT - 05/06/2025 5:09 PM EDT Emergency [facility] Emergency [address] [place] [address] Katharina Trammell MD Anxiety (Primary Dx); Hyperglycemia Discharge Disposition: Home or Self Care from Last 3 Months Surgical History Surgery Date Site/Laterality Comments BARIATRIC SURGERY 08/07/2017 PROCEDURE: FL LAPS GSTRC RSTRICTIV PX LONGITUDINAL GASTRECTOMY HAND SURGERY Right PROCEDURE: HISTORICAL HAND SURGERY Medical History Medical History Date Comments HUEY on CPAP DX:HUEY on CPAP DM (diabetes mellitus) (CMS/ HCC V24, CMS/HCC V28) DX:DM (diabetes mellitus) (H CC) HTN (hypertension) 10/23/2020 DX:HTN (hyper tension) HLD (hyperlipidemia) 10/23/2020 DX:HLD (hyp erlipidemia) Depression 10/23/2020 DX:Depression Insomnia 10/23/2020 DX:Insomnia Obesity 10/23/2020 DX:Obesity SOB (shortness of breath) 10/23/2020 DX:SOB (shortness of breath) Family History Medical History Relation Name Comments Diabetes Father Hypertension Father Other: Hyperlipidemia Father Coronary artery disease Mother Hypertension Mother Relation Name Status Comments Father Mother Social History Tobacco Use Types Packs/Day Years Used Date Smoking Tobacco: Some Days Smokeless Tobacco: Never Alcohol Use Standard Drinks/Week Comments Yes 0 (1 standard drink = 0.6 oz pur e alcohol) Sex and Gender Information Value Date Recorded Sex Assigned at Not on file Legal Sex Male 11:33 AM EST Gender Identity Not on file Sexual Orientation Not on file Obstetrics History Last Filed Vital Signs Vital Sign Reading Time Taken Comments Blood Pressure 156/98 05/06/2025 1:41 PM EDT Pulse 96 05/06/2025 4:52 PM EDT Temperature 36.1 C (97 F) 05/06/2025 1:41 PM EDT Respiratory Rate 16 05/06/2025 1:41 PM EDT Oxygen Saturation 97% 05/06/2025 1:41 PM EDT Inhaled Oxygen Concentration - - Weight 147 kg (324 lb) 05/06/2025 1:41 PM EDT Height 182.9 cm (6') 05/06/2025 1:41 PM EDT Body Mass Index 43.94 05/06/2025 1:41 PM EDT Plan of Treatment Health Maintenance Due Date Last Done Comments Colorectal Cancer Screening: Colonoscopy 1980 Diabetes: Annual Foot Exam 1990 Diabetes: Annual Retina Eye Exam 1990 DTaP,Tdap,and Td Vaccines (1 - Tdap) 1999 Hepatitis B Vaccines (1 of 3 - 19+ 3-dose series) 1999 Pneumococcal Vaccine: Pediatrics (0 to 5 Years) and At-Risk Patients (6 to 49 Years) (1 of 2 - PCV) 1999 HPV Vaccines (1 - 3-dose SCDM series) 2007 Depression Screening 08/08/2024 HIV Screening 12/07/2024 Medicare Annual Wellness Visit 12/07/2024 Social Influencers of Health Screening 12/07/2024 Diabetes: Blood Sugar Control Test (HGBA1C) 03/07/2025 09/07/2024 COVID-19 Vaccine ( season) 2025 Influenza Vaccine (#1) 2025 Diabetes: Annual Urine Albumin-Creatinine Ratio (uACR) 06/19/2025 06/19/2024, 01/06/2022 Diabetes: Annual GFR (Glomerular Filtration Rate) 09/09/2025 09/09/2024, 09/09/2024, 09/07/2024, Additional history exists Hypertension/CHF/CAD Annual BMP Blood Test 09/09/2025 09/09/2024, 09/09/2024, 09/07/2024, Additional history exists Cholesterol Screening (Lipid Panel) 09/07/2029 09/07/2024, 05/17/2024, 01/24/2024 RSV Immunization Adult Patients (1 - 1-dose 75+ series) 2055 Hepatitis C Screening Completed 01/24/2024 HIB Vaccines Aged Out No longer eligi ble based on patient's age to complete this topic Hepatitis A Vaccines Aged Out No long er eligible based on patient's age to complete this topic IPV Vaccines Aged Out No longer eligi ble based on patient's age to complete this topic MMR Vaccines Aged Out No longer eligi ble based on patient's age to complete this topic Meningococcal ACWY Vaccine Aged Out N o longer eligible based on patient's age to complete this topic Meningococcal B Vaccine Aged Out No l onger eligible based on patient's age to complete this topic RSV Immunization Patients Under 20 months Aged Out No longer eligible based on patient's age to complete this topic Varicella Vaccines Aged Out No longer eligible based on patient's age to complete this topic Procedures Procedure Name Priority Date/Time Associated Diagnosis Comments POCT GLUCOSE BLOOD Routine 05/06/2025 3: 45 PM EDT POCT GLUCOSE BLOOD Routine 05/06/2025 1: 46 PM EDT from Last 3 Months Results * (ABNORMAL) POCT Glucose, blood (05/06/2025 3:45 PM EDT) Only the most recent of2 resultswithin the time period is included. Glucose POCT 134(H) 70 - 100 mg/dL 05/06/2025 3:46 PM EDT [facility] Blood Capillary blood specimen / Unknown 05/06/2025 3:45 PM EDT 05/06/2025 3:47 PM EDT us Katharina Trammell MD LAB POINT OF CARE TE ST DOCKED DEVICE UNSOLICITED RESULTS Final Result [facility] [address] [place] [address], [place] [phone] from Last 3 Months Insurance MEDICARE Member Subscriber Plan / Payer ( fective 2025-Present) Name:JANNETTE ALVAREZ SR Member ID:[id number] Relation to Subscriber:Self Name:Antonio Jannette Sr. Subscriber ID:[id number] Payer ID:Not on file Group ID:Not on file Type:Medicare Address: [address] MED[place] - [place] MEDICARE Care Teams Angledozer Operator Relationship Specialty Start Date End Date Aayush Rice MD [address] [place] [address] PCP - General 02/27/21
[2025-06-06 12:11] LABS: Microalbum/Creatinine Ratio Ur 47.3 ug/mg cr (<30)
== END 2025-06-06 09:54 | disposition home or self-care (01) ==
LOC: HO.10HDL 09:53
PROVIDERS: Visit Provider Internal Medicine Medical Oncology
DX: E11.65 Type 2 diabetes mellitus with hyperglycemia (principal); I10 Essential (primary) hypertension; G47.33 Obstructive sleep apnea (adult) (pediatric); E66.01 Morbid (severe) obesity due to excess calories
CPT/HCPCS: 36415; 80053; 80061; 82043; 82570; 83036; 85025